=== PATIENT | male | born 1945 | race Caucasian/White ===

== ENCOUNTER 2017-03-09 21:57 | Observation (INO) | payer OTHER, MEDICARE ==
[~2017-03-09] VITALS: Ht 172.7 cm; Wt 66.7 kg
[~2017-03-09 21:57] MED LIST: ALBU6.7H INH; ASPI81TA82 PO; CLOP75 PO; IPRAAER IN; LORTA5 PO; SYMB80AE INH; ZOCO40TA PO
[2017-03-09 22:05] VITALS: BP 210/107; PULSE 70; RESP 24; TEMP 98.7; O2SAT 91
[2017-03-09 22:15] VITALS: BP 179/101; PULSE 66; RESP 24; O2SAT 98
[2017-03-09] MEDS ORDERED: methylPREDNISolone SOD SUCC 125 MG/2 ML VIAL IV PUSH ONE (22:15)
[2017-03-09] MEDS ORDERED: RESP: ALBUTEROL 2.5 MG/IPRATROPIUM 0.5 MG NEB (SCH) NEB ONE (22:15)
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
[2017-03-09 22:30] VITALS: BP 194/105; PULSE 64; RESP 22; O2SAT 99
[2017-03-09 22:35] LABS: CHLORIDE 97 MEQ/L (98-107); POTASSIUM 4.1 MEQ/L (3.5-5.1); SODIUM (NA) 137 MEQ/L (136-145)
[2017-03-09] MEDS ORDERED: ATOR10TA15 PO (22:35)
[2017-03-09] MEDS ORDERED: ASPI1TAB69 PO (22:35)
[2017-03-09 22:36] LABS: AUTOMATED NEUTROPHIL # 4.7 TH/MM3 (1.8-7.7); BASOPHIL # 0.1 TH/MM3 (0-0.2); BASOPHIL % 1.3 % (0.0-2.0); EOSINOPHIL # 0.6 TH/MM3 (0-0.4); EOSINOPHIL % 7.8 % (0.0-4.0); HEMATOCRIT 47.6 % (39.0-51.0); HEMO FLAGS DIFF FINAL; LYMPH % 20.9 % (9.0-44.0); LYMPHOCYTE # 1.6 TH/MM3 (1.0-4.8); MEAN CELL VOLUME 95.1 FL (80.0-100.0); MEAN CORPUSCULAR HEMOGLOBIN 31.3 PG (27.0-34.0); MEAN CORPUSCULAR HGB CONC 32.9 % (32.0-36.0); MONO % 9.4 % (0.0-8.0); NEUT % 60.6 % (16.0-70.0); PLATELET COUNT 195 TH/MM3 (150-450); RED CELL DISTRIBUTION WIDTH 14.9 % (11.6-17.2); WHITE BLOOD COUNT 7.7 TH/MM3 (4.0-11.0)
[2017-03-09] MEDS ORDERED: LISI2.5T3 PO (22:36)
[2017-03-09] MEDS ORDERED: IPRAAER INH (22:37)
[2017-03-09] MEDS ORDERED: SYMB80AE INH (22:38)
[2017-03-09] MEDS ORDERED: ALBU0.63 NEB (22:39)
[2017-03-09 22:40] LABS: ANION GAP 5 MEQ/L (5-15); BICARBONATE 34.7 MEQ/L (21.0-32.0); BLOOD UREA NITROGEN 10 MG/DL (7-18)
[2017-03-09 22:41] LABS: APTT (PATIENT) 26.9 SEC (24.3-30.1); INTERNATIONAL NORMALIZED RATIO 1.2 RATIO; PROTHROMBIN TIME - PATIENT 12.8 SEC (9.8-11.6)
[2017-03-09 22:43] LABS: ALT (GPT) 25 U/L (12-78); AST (GOT) 28 U/L (15-37); GLOMERULAR FILTRATION RATE 74 ML/MIN (>89)
[2017-03-09 22:45] LABS: TOTAL BILIRUBIN ADULT 0.6 MG/DL (0.2-1.0)
[2017-03-09 22:46] LABS: ALKALINE PHOSPHATASE 89 U/L (45-117)
--- NOTE | 2017-03-09 22:51 | RADHPO ---
EXAM DATE/TIME: 03/09/2017 22:23 [facility] COMPARISON: CHEST SINGLE AP, July 27, 2015, 11:15. INDICATIONS : Shortness of breath. MEDICAL HISTORY : Chronic obstructive pulmonary disease. Emphysema. Congestive heart failure. SURGICAL HISTORY : CABG. ENCOUNTER: Initial ACUITY: >1 year PAIN SCORE: 0/10 LOCATION: Bilateral chest FINDINGS: There is right apical pleural thickening which is a new finding since July 2015. No new consolidat ion the remainder of the lungs. Previous median sternotomy. No significant effusion. Scattered parenc hymal scarring in both lungs. CONCLUSION: 1. There is biapical pleural thickening to 1.9 cm which is a new finding since 2014. Cannot exclude a pical mass. Patient is scheduled for neck CT which should include visualization of the lung apices. Armond Elmore MD on March 09, 2017 at 22:46 Board Certified Radiologist. This report was verified electronically.
[2017-03-09 23:00] VITALS: BP 165/81; PULSE 66; RESP 22; O2SAT 99
[2017-03-09 23:03] LABS: BLOOD, URINE SMALL (NEG); GLUCOSE,URINE NEG (NEG); KETONE, URINE NEG (NEG); NITRITE,URINE NEG (NEG)
[2017-03-09 23:16] LABS: URINE COLOR YELLOW (YELLW/STRAW)
[2017-03-09 23:25] LABS: COMMENT (UR) CULT NOT INDICATED; CULTURE IF INDICATED CULT NOT INDICATED; RBC, URINE 0-3 /hpf (0-3); SQUAMOUS EPITHELIAL CELL URINE 0-5 /hpf (0-5)
[2017-03-09 23:30] VITALS: BP 172/103; PULSE 80; RESP 20; O2SAT 96
[2017-03-09] MEDS ORDERED: IOHEXOL 350 MG/ML 10 ML VIAL (for RAD DIAG) IV ONE (23:37)
[2017-03-10] VITALS (13 sets, daily range): BP systolic 154–174; BP diastolic 81–93; PULSE 70–94; RESP 18–20; TEMP 96.5–97.9; O2SAT 94–98
--- NOTE | 2017-03-10 00:02 | RADHPO ---
EXAM DATE/TIME: 03/09/2017 23:11 [facility] COMPARISON: CHEST SINGLE AP, July 27, 2015, 11:15. CHEST SINGLE AP, March 09, 2017, 22:23. INDICATIONS : Shortness of breath. Feeling of throat closing.. Abnormal chest x-ray exam demonstrating right a pical pleural thickening which is a new finding. IV CONTRAST: 100 cc Omnipaque 350 (iohexol) IV RADIATION DOSE: 13.99 CTDIvol (mGy) MEDICAL HISTORY : Chronic obstructive pulmonary disease. Cardiovascular disease SURGICAL HISTORY : CABG ENCOUNTER: Initial ACUITY: 2 days PAIN SCALE: 0/10 LOCATION: neck thyroid cartilage region. TECHNIQUE: Volumetric scanning of the neck was performed. Using automated exposure control and adjustment of th e mA and/or kV according to patient size, radiation dose was kept as low as reasonably achievable to obtain optimal diagnostic quality images. FINDINGS: NASOPHARYNX: The nasopharyngeal airway has a normal configuration. No mucosal thickening or mass is seen. OROPHARYNX: The intrinsic muscles of the tongue are symmetric. The tonsillar pillars are intact. The prevertebr al soft tissues are not thickened. LARYNX: The supraglottic, glottic, and infraglottic structures are intact. PARAPHARYNGEAL: The parapharyngeal space is intact. SALIVARY GLANDS: The parotid and submandibular glands are intact. LYMPH NODES: No enlarged or necrotic-appearing nodes. There are scattered reactive appearing lymph nodes. THYROID: Homogeneous enhancement without evidence of nodule. BONES: Patient is noted status post median sternotomy. The upper lung apices were included on the exam and demonstrate underlying emphysema. There is a symmetric right lateral apical pleural parenchymal change which is partially visualized. This corresp onds to finding on the chest x-ray. A metal stent catheter is noted in the left subclavian artery. CONCLUSION: 1. The airway is intact with no intrinsic mass or narrowing. 2. Small reactive appearing lymph nodes with no definite adenopathy. 3. Portions of the lung apices were included on the exam and demonstrate underlying emphysema as well as asymmetric right lateral apical pleural parenchymal change which is only partially visualized. Th is is nonspecific there was a new finding on chest x-ray exam. A dedicated chest CT with contrast is recommended. Tay Hay MD on March 09, 2017 at 23:53 Board Certified Radiologist. This report was verified electronically.
[2017-03-10] MEDS ORDERED: NALOXONE HCL 0.4 MG/ML AMP IV PRN (01:45)
[2017-03-10] MEDS ORDERED: SODIUM CHLORIDE 0.9% FLUSH 10 ML FLUSH IV FLUSH PRN (01:45)
[2017-03-10] MEDS ORDERED: RESP: ALBUTEROL 2.5 MG/IPRATROPIUM 0.5 MG NEB (PRN) NEB (01:45)
[2017-03-10] MEDS: RESP: ALBUTEROL 2.5 MG/IPRATROPIUM 0.5 MG NEB (SCH) NEB ×4 (03:12→21:00)
[2017-03-10] MEDS: PANTOPRAZOLE SODIUM 40 MG VIAL IV PUSH SCH (05:42)
[2017-03-10] MEDS: methylPREDNISolone SOD SUCC 40 MG/1 ML VIAL IV PUSH SCH ×3 (05:42→17:55)
[2017-03-10] MEDS ORDERED: PNEUMOCOCCAL POLYVALENT INJ 25 MCG/0.5 ML SYR IM ONE (09:00)
[2017-03-10] MEDS: SODIUM CHLORIDE 0.9% FLUSH 10 ML FLUSH IV FLUSH SCH ×2 (09:11→20:41)
--- NOTE | 2017-03-10 10:27 | EKG ---
Date Performed: 03/09/2017 Time Performed: 22:05:52 PTAGE: 71 years EKG: Sinus rhythm with 1st degree A-V block Left anterior fascicular block rSr'(V1) - probable normal variant Anterose ptal T wave changes are nonspecific Abnormal ECG PREVIOUS TRACING : 07/29/2015 11.10 DOCTOR: Kael Zhao Interpretating Date/Time 03/10/2017 10:22:18
[2017-03-10] MEDS ORDERED: PILL SPLITTER OTHER PRN (12:00)
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
[2017-03-10] MEDS: MULTIVITAMIN TAB PO SCH (12:21)
[2017-03-10 18:55] LABS: BLOOD GAS BASE EXCESS 4.8 mmol/L (-2-2); BLOOD GAS CARBOXYHEMOGLOBIN 1.6 % (0-4); BLOOD GAS HCO3 29 mmol/L (22-26); BLOOD GAS O2 HGB SATURATION 94 % (90-100); BLOOD GAS OXYGEN CONTENT 18.9 Vol % (12.0-20.0); BLOOD GAS PCO2 48 mmHg (38-42); BLOOD GAS PO2 89 mmHg (61-120); BLOOD GAS TOTAL HGB 14.2 G/DL (12.0-16.0); CRITICAL VALUE NO; DRAW SITE RT RADIAL; FIO2 32 %; LITER FLOW 3 L/M; NUMBER OF ARTERIAL PUNCTURES 1; OXYGEN DEVICE NASAL CANNULA; STAT YES; TEMP CORR TO 98.6; ULNAR PULSE PRESENT
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
[2017-03-10] MEDS: BUDESONIDE-FORMOTEROL 80/4.5 MCG INHALER INH SCH (20:41)
[2017-03-10] MEDS ORDERED: ATORVASTATIN 10 MG TAB PO SCH (21:00)
[2017-03-10] MEDS ORDERED: RESP: ALBUTEROL 0.63 MG/3 ML NEB (SCH) NEB (21:00)
[2017-03-11] VITALS: BP 117/69; PULSE 84; RESP 18; TEMP 97.8; O2SAT 97
[2017-03-11] MEDS: methylPREDNISolone SOD SUCC 40 MG/1 ML VIAL IV PUSH SCH ×3 (00:33→12:47)
[2017-03-11] MEDS: RESP: ALBUTEROL 2.5 MG/IPRATROPIUM 0.5 MG NEB (SCH) NEB ×2 (03:51→10:06)
[2017-03-11 04:00] VITALS: BP 99/81; PULSE 80; RESP 22; TEMP 97.6; O2SAT 95
[2017-03-11] MEDS: PANTOPRAZOLE SODIUM 40 MG VIAL IV PUSH SCH (06:43)
--- NOTE | 2017-03-11 07:34 | HHI.PR ---
Subjective Remarks ) Sleeping in bed since he was not able to sleep overnight. Says he has bouts of cough persistent and with periods of apnea. No fever or chills. Says he is feeling his biceps closing up. Since his coughing but nothing comes out. He is not wheezing at this time. No nausea or vomiting. No diarrhea or constipation. Objective Vitals Vital Signs Date Time Temp Pulse Resp B/P Pulse Ox O2 Delivery O2 Flow Rate FiO2 03/11/17 04:00 97.6 80 22 99/81 95 03/11/17 00:00 97.8 84 18 117/69 97 03/10/17 21:00 95 Nasal Cannula 3.00 03/10/17 20:43 91 03/10/17 20:00 96.5 94 20 159/91 94 03/10/17 20:00 94 Nasal Cannula 3.00 03/10/17 16:00 97.8 81 18 154/81 96 03/10/17 12:00 97.8 81 18 154/81 96 03/10/17 09:18 94 Nasal Cannula 3.00 03/10/17 08:00 97.7 78 19 174/93 95 I/O 03/10/17 03/10/17 03/10/17 03/11/17 03/11/17 03/11/17 07:00 15:00 23:00 07:00 15:00 23:00 Intake Total 250 ml 420 ml 720 ml Output Total 300 ml 800 ml 500 ml 700 ml Balance -50 ml -800 ml -80 ml 20 ml Intake Oral 250 ml 420 ml 720 ml IV Total 0 ml Output Urine Total 300 ml 800 ml 500 ml 700 ml # Voids 1 2 # Bowel Movements 1 0 Result Diagram: 03/09/17 2210 03/09/172209 Imaging Last Impressions Neck CT 03/09/172212 Signed Impressions: Service Date/Time: Thursday, March 09, 2017 23:11 - CONCLUSION: 1. The airway is intact with no intrinsic mass or narrowing. 2. Small reactive appearing lymph nodes with no definite adenopathy. 3. Portions of the lung apices were included on the exam and demonstrate underlying emphysema as well as asymmetric right lateral apical pleural parenchymal change which is only partially visualized. This is nonspecific there was a new finding on chest x-ray exam. A dedicated chest CT with contrast is recommended. Tay Hay MD Chest X-Ray 03/09/17 2213 Signed Impressions: Service Date/Time: Thursday, March 09, 2017 22:23 - CONCLUSION: 1. There is biapical pleural thickening to 1.9 cm which is a new finding since 2014. Cannot exclude apical mass. Patient is scheduled for neck CT which should include visualization of the lung apices. Armond Elmore MD Objective Remarks GENERAL: 71 yo male, thin, coughing on/off. SKIN: No rashes, ecchymoses or lesions. Cool and dry. HEAD: Atraumatic. Normocephalic. No temporal or scalp tenderness. EYES: Pupils equal round and reactive. Extraocular motions intact. No scleral icterus. No injection or drainage. ENT: Nose without bleeding, purulent drainage or septal hematoma. Throat without erythema, tonsillar hypertrophy or exudate. Uvula midline. Airway patent. NECK: Trachea midline. No JVD or lymphadenopathy. Supple, nontender, no meningeal signs. CARDIOVASCULAR: Regular rate and rhythm without murmurs, gallops, or rubs. RESPIRATORY: Diminished breath sounds bilaterally. Otherwise clear to auscultation. No wheezing or rhonchi. GASTROINTESTINAL: Abdomen soft, non-tender, nondistended. No hepato-splenomegaly , or palpable masses. No guarding. MUSCULOSKELETAL: Extremities without clubbing, cyanosis, or edema. No joint tenderness, effusion, or edema noted. No calf tenderness. Negative Homans sign bilaterally. NEUROLOGICAL: Awake and alert. Cranial nerves II through XII intact. Motor and sensory grossly within normal limits. Five out of 5 muscle strength in all muscle groups. Normal speech. A/P Problem List: (1) COPD exacerbation ICD Code: J44.1 Status: Acute (2) Chronic respiratory failure ICD Code: J96.10 Status: Chronic (3) Coronary artery disease ICD Code: I25.10 Status: Chronic (4) Hyperlipidemia ICD Code: E78.5 Status: Chronic (5) Hypertension ICD Code: I10 Status: Acute Assessment and Plan (1) COPD exacerbation ICD Code: J44.1 Status: Acute Plan: - Patient with known history of emphysema. He is having severe spasmodic cough. Imaging revealed a probable apical mass. CT of the chest with contrast was recommended. However he already received the allowed contrast dose for the day. This will be done tomorrow. Supportive care with breathing treatments, oxygen Continue IV Solu-Medrol Consult pulmonology for assistance - Seen by Dr Rigo siegel . recommends CT for further evaluation of the LN (2) Chronic respiratory failure ICD Code: J96.10 Status: Chronic (3) Coronary artery disease ICD Code: I25.10 Status: Chronic Plan: Continue aspirin and statin. (4) Hyperlipidemia ICD Code: E78.5 Status: Chronic Plan: Continue statin (5) Hypertension ICD Code: I10 Status: Acute Plan: Stable. Continue lisinopril DVT ppx SCD/TEDs Melany Pitt MD March 11, 2017 07:34
[2017-03-11 07:39] LABS: AUTOMATED NEUTROPHIL # 11.7 TH/MM3 (1.8-7.7); EOSINOPHIL % 0.1 % (0.0-4.0); HEMATOCRIT 44.5 % (39.0-51.0); LYMPH % 3.3 % (9.0-44.0); LYMPHOCYTE # 0.4 TH/MM3 (1.0-4.8); MEAN CELL VOLUME 95.4 FL (80.0-100.0); MEAN CORPUSCULAR HEMOGLOBIN 30.5 PG (27.0-34.0); MONO % 2.2 % (0.0-8.0); NEUT % 94.4 % (16.0-70.0); PLATELET COUNT 184 TH/MM3 (150-450); RED BLOOD COUNT 4.66 MIL/MM3 (4.50-5.90); RED CELL DISTRIBUTION WIDTH 15.8 % (11.6-17.2); WHITE BLOOD COUNT 12.4 TH/MM3 (4.0-11.0)
[2017-03-11 07:41] LABS: HEMO FLAGS DIFF FINAL
[2017-03-11 08:00] VITALS: BP 138/85; PULSE 80; RESP 18; TEMP 97.4; O2SAT 95
[2017-03-11] MEDS ORDERED: IOHEXOL 350 MG/ML 10 ML VIAL (for RAD DIAG) IV ONE (08:57)
[2017-03-11] MEDS ORDERED: LISINOPRIL 5 MG TAB PO SCH (09:00)
[2017-03-11] MEDS ORDERED: ASPIRIN EC 81 MG TABEC PO SCH (09:00)
[2017-03-11] MEDS: SODIUM CHLORIDE 0.9% FLUSH 10 ML FLUSH IV FLUSH SCH (09:00)
--- NOTE | 2017-03-11 09:17 | RADHPO ---
EXAM DATE/TIME: 03/11/2017 08:41 [facility] COMPARISON: CT SOFT TISSUE NECK W CONTRAST, March 09, 2017, 23:11. CTA THORACIC ABDOMINAL AORTA W 3D RECON, Octobe r 2014, 11:53. CHEST SINGLE AP, March 09, 2017, 22:23. INDICATIONS : Abnormal chest x-ray. Evaluate for mass. IV CONTRAST: 60 cc Omnipaque 350 (iohexol) IV RADIATION DOSE: 6.57 CTDIvol (mGy) MEDICAL HISTORY : Chronic obstructive pulmonary disease. Congestive heart failure. Myocardial infarction.Hypertension. SURGICAL HISTORY : CABG ENCOUNTER: Initial ACUITY: 4 - 6 days PAIN SCALE: 0/10 LOCATION: chest TECHNIQUE: Volumetric scanning of the chest was performed. Using automated exposure control and adjustment of t he mA and/or kV according to patient size, radiation dose was kept as low as reasonably achievable to obtain optimal diagnostic quality images. FINDINGS: LUNGS: CT confirms the presence of bilateral changes most prominent in the apices. There is marked pleural p arenchymal thickening laterally in the right apex which was not present in July of 2015. The previ ous area of consolidation laterally in the left perihilar distribution of the left lower lobe shows i mprovement with some residual pleural-parenchymal scarring. No additional infiltrates or mass lesions . PLEURA: Pleural thickening in the region of the pleural-parenchymal consolidation laterally in the right uppe r lung. MEDIASTINUM: Cluster of prominent azygos lymph nodes. These appear isolated. Atherosclerotic calcification of the coronary arteries. Nonostial stent in the left subclavian artery remains patent. AXILLAE: Within normal limits. No lymphadenopathy. SKELETAL: Degenerative changes in the dorsal spine. 2.5 cm sebaceous cyst in the subcutaneous tissues of the ri ght chest. MISCELLANEOUS: The visualized upper abdominal organs demonstrate no acute abnormality. CONCLUSION: 1. Focal area of pleural-parenchymal consolidation laterally and posteriorly in the right lung apex. This is new from the July 2015 exam. A prominent cluster of paratracheal/azygos lymph nodes is als o present. Both infectious and neoplastic processes should be considered. PET imaging is suggested fo r further evaluation to locate the most metabolically active portions of the consolidative process. 2. Diffuse, bilateral emphysematous changes, most prominent in the apices. Previous area of consolida tion in the perihilar distribution of the left lower lobe shows marked improvement with residual pleu ral-parenchymal scarring. 3. Left subclavian stent is patent. 4. Coronary artery calcification. 5. Benign appearing 2.5 cm probable sebaceous cyst in subcutaneous tissues of the right chest. Jeronimo Haywood MD on March 11, 2017 at 9:03 Board Certified Radiologist. This report was verified electronically.
[2017-03-11] MEDS: MULTIVITAMIN TAB PO SCH (09:26)
[2017-03-11] MEDS: BUDESONIDE-FORMOTEROL 80/4.5 MCG INHALER INH SCH (09:29)
[2017-03-11 10:07] VITALS: O2SAT 96
[2017-03-11 12:00] VITALS: BP 157/87; PULSE 88; RESP 18; TEMP 97.8; O2SAT 95
--- NOTE | 2017-03-15 11:56 | RSPPFT ---
DATE OF PROCEDURE: 03/11/17 COMMENTS: Spirometry shows FVC of 2.8 at 68% of predicted, FEV1 of 1.3 at 42%, FEV1/FVC ratio is decreased. Flow is decreased at FEF 25, FEF 75 and FEF 25-75. There is a good response after bronchodilator treatment. Flow volume loop indicates an obstructive pattern. IMPRESSION: 1. Moderately severe obstructive lung disease. 2. Good response after bronchodilator treatment.
== END 2017-03-11 13:30 | disposition left against medical advice (07) ==
LOC: PHED 21:57 → PHEDA 03-10 01:08 → PH3A 03-10 02:30
PROVIDERS: ADMIT Hospitalist; ATTEND Hospitalist
DX: J44.1 Chronic obstructive pulmonary disease with (acute) exacerbation (principal); I48.91 Unspecified atrial fibrillation; F41.9 Anxiety disorder, unspecified; F32.9 Major depressive disorder, single episode, unspecified; J96.10 Chronic respiratory failure, unspecified whether with hypoxia or hypercapnia; J98.4 Other disorders of lung; E78.00 Pure hypercholesterolemia, unspecified; I11.0 Hypertensive heart disease with heart failure; I50.9 Heart failure, unspecified; I25.10 Atherosclerotic heart disease of native coronary artery without angina pectoris; H91.90 Unspecified hearing loss, unspecified ear; K21.9 Gastro-esophageal reflux disease without esophagitis; I25.2 Old myocardial infarction; M13.861 Other specified arthritis, right knee; F17.210 Nicotine dependence, cigarettes, uncomplicated; E78.5 Hyperlipidemia, unspecified; Z99.81 Dependence on supplemental oxygen; Z79.82 Long term (current) use of aspirin; Z95.1 Presence of aortocoronary bypass graft; Z88.2 Allergy status to sulfonamides; Z23 Encounter for immunization
CPT/HCPCS: 36600; 70491; 71010; 71260; 80048; 80053; 81001; 82805; 83880; 84484; 85025; 85610; 85730; 90732; 93005; 94060; 94640; 94664; 96374; 99285; C9113; G0009; G0378; J2920; J2930; Q9967; 90471

== ENCOUNTER 2017-09-01 10:59 | Inpatient (IN) | payer OTHER, MEDICARE ==
[2017-09-01] VITALS (12 sets, daily range): BP systolic 124–182; BP diastolic 66–96; PULSE 77–98; RESP 18–36; TEMP 97.8; O2SAT 89–100
[~2017-09-01] VITALS: Ht 172.7 cm; Wt 82.2 kg
[~2017-09-01 10:59] MED LIST changes: +ALBU0.63 NEB; -ALBU6.7H INH; +ASPI1TAB69 PO; -ASPI81TA82 PO; +ATOR10TA15 PO; -CLOP75 PO; -IPRAAER IN; +IPRAAER INH; +LISI2.5T3 PO; -LORTA5 PO; -ZOCO40TA PO
--- NOTE | 2017-09-01 11:08 | PD ---
HPI Chief Complaint: Respiratory Symptoms Time Seen by Provider: 11:02 Travel History International Travel<30 days: No Contact w/Intl Traveler<30days: No Traveled to known affect area: No History of Present Illness HPI This 72-year-old male is complaining of shortness of breath. He has a history of COPD. He is on home oxygen but he does continue to smoke. He is not aware of fever or chills. He has had increasing shortness of breath for the last couple of days. He has noted increased swelling of his legs and scrotum. He has had some mild precordial chest pain. He does have a history of coronary artery disease and also COPD he has had bypass surgery 3 and he had stents placed. He is on home oxygen at 4 L/m that he also smokes. His oxygen saturation on arrival here was 81% PFSH Past Medical History Hx Anticoagulant Therapy: Yes (PLAVIX) Arthritis: Yes (Right Knee) Asthma: Yes Atrial Fibrillation: Yes Autoimmune Disease: No Blood Disorders: No Anxiety: Yes Depression: Yes Heart Rhythm Problems: Yes Cancer: No Cardiac Catheterization: Yes Cardiovascular Problems: Yes High Cholesterol: Yes Chemotherapy: No Chest Pain: Yes Congestive Heart Failure: Yes COPD: Yes Cerebrovascular Accident: No Coronary Artery Disease: Yes Diabetes: No Diminished Hearing: Yes (Hearing aids) Endocrine: No Gastrointestinal Disorders: Yes (ABDOM HERNIA) GERD: Yes Glaucoma: No Genitourinary: No Headaches: No Hepatitis: No Hiatal Hernia: Yes Hypertension: Yes Immune Disorder: No Kidney Stones: No Musculoskeletal: Yes (LEG AND HIP DUE TO PED VS CAR) Neurologic: No Psychiatric: Yes Reproductive: No Respiratory: Yes Immunizations Current: Yes Migraines: No Myocardial Infarction: Yes Pneumonia: Yes Radiation Therapy: No Renal Failure: No Seizures: No Sickle Cell Disease: No Sleep Apnea: No Thyroid Disease: No Ulcer: No Past Surgical History Abdominal Surgery: No AICD: No Appendectomy: No Arteriovenous Shunt: No Cardiac Surgery: Yes Cholecystectomy: No Coronary Artery Bypass Graft: Yes (X 3; cardiac cath) Coronary Stent: Yes (X2 ) Ear Surgery: No Endocrine Surgery: No Eye Surgery: No Genitourinary Surgery: No Gynecologic Surgery: No Insulin Pump: No Joint Replacement: No Oral Surgery: Yes (Dental Extractions) Pacemaker: No Thoracic Surgery: Yes (Biopsies of the lungs) Other Surgery: Yes (Bone grafts from bilat hips ) Social History Alcohol Use: Yes (Occasionally) Tobacco Use: Yes (1 CIG A DAY) Substance Use: No Allergies-Medications (Allergen,Severity, Reaction): Coded Allergies: Sulfa (Sulfonamide Antibiotics) (Unverified Allergy, Severe, HIVES AND RASH, 09/01/17) Reported Meds & Prescriptions Reported Meds & Active Scripts Active Reported Albuterol Neb (Albuterol Sulfate) 0.63 Mg/3 Ml Neb 0.63 Mg NEB HS Symbicort Inh (Budesonide/Formoterol Fumarate) 80-4.5 Mcg/Act Aero 2 Puff INH Q12HR Combivent Respimat Inh (Ipratropium-Albuterol Inh) 20-100 Prison/Act Aero 1 Puff INH QID PRN Lisinopril 2.5 Mg Tab 2.5 Mg PO DAILY Atorvastatin (Atorvastatin Calcium) 10 Mg Tab 10 Mg PO HS Aspirin 81 Mg Tabdr 81 Mg PO DAILY Review of Systems General / Constitutional: No: Fever, Chills Eyes: No: Diploplia, Blurred Vision HENT: No: Headaches, Vertigo Cardiovascular: Positive: Chest Pain or Discomfort Respiratory: Positive: Cough, Shortness of Breath Gastrointestinal: No: Vomiting, Diarrhea Genitourinary: No: Urgency, Frequency Musculoskeletal: No: Myalgias, Arthralgias Hematologic/Lymphatic: No: Easy Bruising Physical Exam Narrative GENERAL: Chronically ill-appearing male in marked respiratory distress SKIN: Focused skin assessment warm/dry. HEAD: Atraumatic. Normocephalic. EYES: Pupils equal and round. No scleral icterus. No injection or drainage. ENT: No nasal bleeding or discharge. Mucous membranes pink and moist. NECK: Trachea midline. No JVD. CARDIOVASCULAR: Regular rate and rhythm. No murmur appreciated. RESPIRATORY: accessory muscle use. Diminished breath sounds bilaterally. There are bibasilar rales GASTROINTESTINAL: Abdomen soft, non-tender, nondistended. Hepatic and splenic margins not palpable. MUSCULOSKELETAL: No obvious deformities. No clubbing. No cyanosis. Bilateral pedal edema up to and including the scrotum NEUROLOGICAL: Awake and alert. No obvious cranial nerve deficits. Motor grossly within normal limits. Normal speech. PSYCHIATRIC: Appropriate mood and affect; insight and judgment normal. Data Data Last Documented VS Vital Signs Date Time Temp Pulse Resp B/P (MAP) Pulse Ox O2 Delivery O2 Flow Rate FiO2 09/01/17 11:47 97 Nasal Cannula 3.00 09/01/17 11:28 09/01/17 11:14 97.8 77 22 Orders Orders Complete Blood Count With Diff (09/01/17 11:02) Comprehensive Metabolic Panel (09/01/17 11:02) B-Type Natriuretic Peptide (09/01/17 11:02) Act Partial Throm Time (Ptt) (09/01/17 11:02) Prothrombin Time / Inr (Pt) (09/01/17 11:02) Magnesium (Mg) (09/01/17 11:02) Troponin I (09/01/17 11:02) Urinalysis - C+S If Indicated (09/01/17 11:02) Influenzae A/B Antigen (09/01/17 11:02) Blood Culture (09/01/17 11:02) Iv Access Insert/Monitor (09/01/17 11:02) Electrocardiogram (09/01/17 11:02) Ecg Monitoring (09/01/17 11:02) Oximetry (09/01/17 11:02) Oxygen Administration (09/01/17 11:02) Chest, Single Ap (09/01/17 11:02) Sodium Chloride 0.9% Flush (Ns Flush) (09/01/17 11:15) Methylprednisolone So Succ Inj (Solumedr (09/01/17 11:15) Albuterol-Ipratropium Neb (Duoneb Neb) (09/01/17 11:15) Furosemide Inj (Lasix Inj) (09/01/17 11:45) Labs Laboratory Tests Test 09/01/17 11:38 White Blood Count 6.7 TH/MM3 Red Blood Count 4.38 MIL/MM3 Hemoglobin 13.9 GM/DL Hematocrit 42.4 % Mean Corpuscular Volume 97.0 FL Mean Corpuscular Hemoglobin 31.8 PG Mean Corpuscular Hemoglobin Concent 32.8 % Red Cell Distribution Width 15.1 % Platelet Count 199 TH/MM3 Mean Platelet Volume 9.3 FL Neutrophils (%) (Auto) 76.3 % Lymphocytes (%) (Auto) 10.8 % Monocytes (%) (Auto) 8.3 % Eosinophils (%) (Auto) 3.0 % Basophils (%) (Auto) 1.6 % Neutrophils # (Auto) 5.1 TH/MM3 Lymphocytes # (Auto) 0.7 TH/MM3 Monocytes # (Auto) 0.6 TH/MM3 Eosinophils # (Auto) 0.2 TH/MM3 Basophils # (Auto) 0.1 TH/MM3 CBC Comment DIFF FINAL Differential Comment Prothrombin Time 12.3 SEC Prothromb Time International Ratio 1.1 RATIO Activated Partial Thromboplast Time 26.8 SEC Blood Urea Nitrogen 12 MG/DL Creatinine 0.66 MG/DL Random Glucose 95 MG/DL Total Protein 5.9 GM/DL Albumin 1.5 GM/DL Calcium Level 8.3 MG/DL Magnesium Level 2.4 MG/DL Alkaline Phosphatase 111 U/L Aspartate Amino Transf (AST/SGOT) 44 U/L Alanine Aminotransferase (ALT/SGPT) 28 U/L Total Bilirubin 0.4 MG/DL Sodium Level 140 MEQ/L Potassium Level 5.2 MEQ/L Chloride Level 101 MEQ/L Carbon Dioxide Level 37.3 MEQ/L Anion Gap 2 MEQ/L Estimat Glomerular Filtration Rate 119 ML/MIN Troponin I 0.05 NG/ML B-Type Natriuretic Peptide 912 PG/ML MDM Medical Decision Making Medical Screen Exam Complete: Yes Emergency Medical Condition: Yes Medical Record Reviewed: Yes Differential Diagnosis Differential includes COPD exacerbation, CHF, pneumonia Narrative Course X-ray shows right pleural effusion and evidence of COPD. BNP is 912. Diagnosis Primary Impression: CHF (congestive heart failure) Qualified Codes: I50.9 - Heart failure, unspecified Additional Impressions: COPD exacerbation Hypoxia Admitting Information Admitting Physician Requests: Admit Harmeet Yan MD Sep 01, 2017 11:08
[2017-09-01] MEDS ORDERED: SODIUM CHLORIDE 0.9% FLUSH 10 ML FLUSH IVF PRN (11:15)
[2017-09-01] MEDS ORDERED: methylPREDNISolone SOD SUCC 125 MG/2 ML VIAL IV PUSH ONE (11:15)
[2017-09-01] MEDS: RESP: ALBUTEROL 2.5 MG/IPRATROPIUM 0.5 MG NEB (SCH) INH ×2 (11:31→11:32)
[2017-09-01 11:45] LABS: AUTOMATED NEUTROPHIL # 5.1 TH/MM3 (1.8-7.7); BASOPHIL # 0.1 TH/MM3 (0-0.2); BASOPHIL % 1.6 % (0.0-2.0); EOSINOPHIL # 0.2 TH/MM3 (0-0.4); HEMATOCRIT 42.4 % (39.0-51.0); LYMPH % 10.8 % (9.0-44.0); LYMPHOCYTE # 0.7 TH/MM3 (1.0-4.8); MEAN CORPUSCULAR HEMOGLOBIN 31.8 PG (27.0-34.0); MEAN CORPUSCULAR HGB CONC 32.8 % (32.0-36.0); MONO % 8.3 % (0.0-8.0); NEUT % 76.3 % (16.0-70.0); PLATELET COUNT 199 TH/MM3 (150-450); RED BLOOD COUNT 4.38 MIL/MM3 (4.50-5.90); RED CELL DISTRIBUTION WIDTH 15.1 % (11.6-17.2); WHITE BLOOD COUNT 6.7 TH/MM3 (4.0-11.0)
[2017-09-01] MEDS ORDERED: FUROSEMIDE 40 MG/4 ML VIAL IV PUSH ONE (11:45)
--- NOTE | 2017-09-01 11:45 | RADRPT ---
EXAM DATE/TIME: 09/01/2017 11:20 [facility] COMPARISON: CHEST SINGLE AP, July 27, 2015, 11:15. CT THORAX W CONTRAST, March 11, 2017, 8:41. CHEST SINGLE AP , March 09, 2017, 22:23. INDICATIONS : Short of breath MEDICAL HISTORY : Chronic obstructive pulmonary disease. Congestive heart failure. Myocardial infarction. Hypertens ion SURGICAL HISTORY : CABG. ENCOUNTER: Initial ACUITY: 2 days PAIN SCORE: 0/10 LOCATION: Bilateral chest FINDINGS: Portable AP views of the chest demonstrate a normal-sized cardiac silhouette in this patient post med christopher sternotomy. There is stable right apical pleural-parenchymal opacity with signs of right upper lo be volume loss. There is a small right basilar pleural-parenchymal opacity. No pneumothorax is visual ized. There are chronic interstitial changes related to emphysema. Bones and soft tissues demonstrate no acute finding. CONCLUSION: 1. Small right pleural effusion with associated compressive atelectasis and/or consolidation. 2. Stable background emphysema with bulla at the lung apices and nonspecific pleural-parenchymal opac ity at the right lung apex. Papo Rouse MD on September 01, 2017 at 11:39 Board Certified Radiologist. This report was verified electronically.
[2017-09-01 11:47] LABS: HEMO FLAGS DIFF FINAL
[2017-09-01 11:54] LABS: CHLORIDE 101 MEQ/L (98-107); SODIUM (NA) 140 MEQ/L (136-145)
[2017-09-01 11:58] LABS: ANION GAP 2 MEQ/L (5-15); BICARBONATE 37.3 MEQ/L (21.0-32.0); BLOOD UREA NITROGEN 12 MG/DL (7-18); MAGNESIUM 2.4 MG/DL (1.5-2.5)
[2017-09-01 11:59] LABS: APTT (PATIENT) 26.8 SEC (24.3-30.1); INTERNATIONAL NORMALIZED RATIO 1.1 RATIO; PROTHROMBIN TIME - PATIENT 12.3 SEC (9.8-11.6)
[2017-09-01 12:01] LABS: ALT (GPT) 28 U/L (12-78); AST (GOT) 44 U/L (15-37); GLOMERULAR FILTRATION RATE 119 ML/MIN (>89)
[2017-09-01 12:02] LABS: POTASSIUM 5.2 MEQ/L (3.5-5.1)
[2017-09-01 12:03] LABS: TOTAL BILIRUBIN ADULT 0.4 MG/DL (0.2-1.0)
[2017-09-01 12:04] LABS: ALKALINE PHOSPHATASE 111 U/L (45-117)
--- NOTE | 2017-09-01 12:47 | EKG ---
Date Performed: 09/01/2017 Time Performed: 11:11:14 PTAGE: 72 years EKG: Sinus rhythm WITH FIRST DEGREE AV BLOCK RIGHT BUNDLE BRANCH BLOCK LEFT ANTERIOR FASCICULAR BLOCK ABNORMAL ECG PREVIOUS TRACING : 03/09/2017 22.05 DOCTOR: Kael Zhao Interpretating Date/Time 09/01/2017 12:45:21
[2017-09-01 12:58] LABS: BLOOD, URINE MOD (NEG); GLUCOSE,URINE NEG (NEG); KETONE, URINE NEG (NEG); NITRITE,URINE NEG (NEG)
[2017-09-01 13:03] LABS: METHOD OF COLLECTION CLEAN CATCH; URINE COLOR YELLOW (YELLW/STRAW); WBC, URINE 0-2 /hpf (0-5)
[2017-09-01 13:04] LABS: COMMENT (UR) CULT NOT INDICATED; CULTURE IF INDICATED CULT NOT INDICATED; SQUAMOUS EPITHELIAL CELL URINE 0-5 /hpf (0-5)
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
[2017-09-01] MEDS ORDERED: SODIUM CHLORIDE 0.9% FLUSH 10 ML FLUSH IV FLUSH PRN (16:00)
[2017-09-01] MEDS: FUROSEMIDE 40 MG/4 ML VIAL IVP SCH (17:16)
[2017-09-01] MEDS: HEPARIN SODIUM - SQ 10,000 UNITS/ML VIAL SQ SCH (17:17)
[2017-09-01] MEDS: RESP: ALBUTEROL 2.5 MG/IPRATROPIUM 0.5 MG NEB (PRN) NEB ×2 (17:47→23:39)
[2017-09-01] MEDS ORDERED: methylPREDNISolone SOD SUCC 40 MG/1 ML VIAL IV PUSH SCH ×2 (18:00→18:30)
--- NOTE | 2017-09-01 19:02 | EKG ---
Date Performed: 09/01/2017 Time Performed: 17:26:51 PTAGE: 72 years EKG: Sinus rhythm WITH FIRST DEGREE AV BLOCK MARKED LEFT AXIS DEVIATION RIGHT BUNDLE BRANCH BLOCK Left anterior fascic ular block ABNORMAL ECG PREVIOUS TRACING : 09/01/2017 11.11 DOCTOR: Karl Diaz Interpretating Date/Time 09/01/2017 19:02:21
[2017-09-01] MEDS: RESP: ALBUTEROL 2.5 MG/IPRATROPIUM 0.5 MG NEB (SCH) NEB (19:44)
[2017-09-01] MEDS: ATORVASTATIN 10 MG TAB PO SCH (20:19)
[2017-09-01] MEDS: METOPROLOL TARTRATE 25 MG TAB PO SCH (20:19)
[2017-09-01] MEDS: SODIUM CHLORIDE 0.9% FLUSH 10 ML FLUSH IV FLUSH SCH (20:19)
[2017-09-01] MEDS: methylPREDNISolone SOD SUCC 125 MG/2 ML VIAL IV PUSH SCH (21:39)
[2017-09-01] MEDS: BUDESONIDE-FORMOTEROL 80/4.5 MCG INHALER INH SCH (21:39)
[2017-09-01] MEDS: guaiFENesin SOLUTION 200 MG/10 ML CUP PO PRN (23:12)
[2017-09-01 23:24] LABS: BLOOD GAS BASE EXCESS 15.4 mmol/L (-2-2); BLOOD GAS CARBOXYHEMOGLOBIN 2.2 % (0-4); BLOOD GAS HCO3 41 mmol/L (22-26); BLOOD GAS METHEMOGLOBIN 0.9 % (0-2); BLOOD GAS O2 HGB SATURATION 89 % (90-100); BLOOD GAS OXYGEN CONTENT 16.2 Vol % (12.0-20.0); BLOOD GAS PCO2 65 mmHg (38-42); BLOOD GAS PO2 62 mmHg (61-120); BLOOD GAS TOTAL HGB 12.9 G/DL (12.0-16.0); CRITICAL VALUE YES; DRAW SITE RT BRACHIAL; FIO2 50 %; NUMBER OF ARTERIAL PUNCTURES 2; OXYGEN DEVICE Venti Mask; STAT YES; ULNAR PULSE Y
[2017-09-02] VITALS (11 sets, daily range): BP systolic 131–158; BP diastolic 68–88; PULSE 76–94; RESP 23–33; TEMP 97.8–98.7; O2SAT 88–98
[2017-09-02 04:47] LABS: AUTOMATED NEUTROPHIL # 3.7 TH/MM3 (1.8-7.7); BASOPHIL % 0.5 % (0.0-2.0); HEMATOCRIT 38.2 % (39.0-51.0); HEMO FLAGS DIFF FINAL; LYMPH % 7.3 % (9.0-44.0); LYMPHOCYTE # 0.3 TH/MM3 (1.0-4.8); MEAN CELL VOLUME 95.5 FL (80.0-100.0); MEAN CORPUSCULAR HEMOGLOBIN 31.5 PG (27.0-34.0); MONO % 0.6 % (0.0-8.0); NEUT % 91.6 % (16.0-70.0); PLATELET COUNT 176 TH/MM3 (150-450); RED BLOOD COUNT 3.99 MIL/MM3 (4.50-5.90); RED CELL DISTRIBUTION WIDTH 13.9 % (11.6-17.2)
[2017-09-02 05:04] LABS: BICARBONATE 41.9 MEQ/L (21.0-32.0); MAGNESIUM 2.3 MG/DL (1.5-2.5); POTASSIUM 4.2 MEQ/L (3.5-5.1)
[2017-09-02] MEDS: methylPREDNISolone SOD SUCC 125 MG/2 ML VIAL IV PUSH SCH ×3 (06:14→22:05)
[2017-09-02] MEDS: HEPARIN SODIUM - SQ 10,000 UNITS/ML VIAL SQ SCH ×2 (06:14→17:39)
--- NOTE | 2017-09-02 07:02 | EKG ---
Date Performed: 09/01/2017 Time Performed: 22:38:51 PTAGE: 72 years EKG: Sinus rhythm WITH FIRST DEGREE AV BLOCK MARKED LEFT AXIS DEVIATION RIGHT BUNDLE BRANCH BLOCK ABNORMAL ECG No sign ificant change from prior electrocardiogram. PREVIOUS TRACING : 09/01/2017 17.26 DOCTOR: Karl Diaz Interpretating Date/Time 09/02/2017 07:01:00
[2017-09-02] MEDS: RESP: ALBUTEROL 2.5 MG/IPRATROPIUM 0.5 MG NEB (SCH) NEB ×3 (07:55→19:26)
[2017-09-02] MEDS: LISINOPRIL 5 MG TAB PO SCH (08:49)
[2017-09-02] MEDS: ASPIRIN 81 MG CHEW TAB CHEW SCH (08:49)
[2017-09-02] MEDS: METOPROLOL TARTRATE 25 MG TAB PO SCH ×2 (08:49→20:07)
[2017-09-02] MEDS: SODIUM CHLORIDE 0.9% FLUSH 10 ML FLUSH IV FLUSH SCH ×2 (08:50→20:07)
[2017-09-02] MEDS: BUDESONIDE-FORMOTEROL 80/4.5 MCG INHALER INH SCH ×2 (08:50→20:07)
[2017-09-02] MEDS: FUROSEMIDE 40 MG/4 ML VIAL IVP SCH ×2 (08:50→17:39)
[2017-09-02] MEDS ORDERED: INFLUENZA VIRUS VACCINE (QUADRIVALENT) 0.5 ML SYR IM ONE (10:00)
--- NOTE | 2017-09-02 13:28 | HHI.PR ---
Subjective Remarks Nursing denies any deterioration since last night. Has remained on 3 L. Patient himself says he feels like his breathing is much better today. Objective Vital Signs Date Time Temp Pulse Resp B/P (MAP) Pulse Ox O2 Delivery O2 Flow Rate FiO2 09/02/17 11:06 98.2 94 24 140/75 (96) 90 09/02/17 08:05 97.8 76 23 158/87 (110) 93 09/02/17 08:00 81 09/02/17 07:57 98 Nasal Cannula 6.00 09/02/17 04:00 98.3 80 30 151/87 (108) 93 09/02/17 03:00 84 25 135/79 (97) 88 09/02/17 00:00 97.9 82 33 131/68 (89) 95 09/01/17 23:00 88 32 126/66 (86) 94 09/01/17 23:00 79 09/01/17 22:00 80 19 143/84 (103) 90 09/01/17 21:00 94 36 124/71 (88) 92 09/01/17 20:00 97.8 98 18 147/78 (101) 89 09/01/17 17:49 96 4.00 09/01/17 15:13 84 09/01/17 15:00 97.8 82 27 143/86 (105) 89 09/01/17 14:00 09/01/17 13:44 78 18 153/83 (106) 97 Nasal Cannula 3.00 I/O 09/01/17 09/01/17 09/01/17 09/02/17 09/02/17 09/02/17 07:00 15:00 23:00 07:00 15:00 23:00 Intake Total 720 ml 60 ml Output Total 375 ml Balance 345 ml 60 ml Intake Oral 720 ml 60 ml Output Urine Total 375 ml # Voids 5 # Bowel Movements 0 Result Diagram: 09/02/1742909/02/17429 Objective Remarks Lying in bed sleeping, easily awoken Unlabored breathing, no cyanosis, on nasal cannula, mild expiratory breathing A/P Assessment and Plan Acute on chronic hypoxic respiratory failure likely secondary to combination of chronic obstructive pulmonary disease, chronic congestive heart failure - Acute component resolving - Continue O2 supplementation maintain O2 sats greater than 92% - Continue duo nebs every 6 hours and every 2 hours as needed - We'll lower Solu-Medrol dose later today - Influenza testing was negative - Obtain sputum culture - Chest x-ray independently reviewed by Dr. Navarro shows diffuse mild bilateral infiltrates suggestive of pulmonary edema as well as a right-sided pleural effusion Acute on chronic congestive heart failure w/ preserved EF of 60% on last echocardiogram - Continue Lasix 40 mg IV every 12 hours - Continue lisinopril - Lopressor - echocardiogram read pending - Strict input and output (+ positive balance today, continue diuresing at least until near neutral) - Fluid restriction - PT eval for AM Hypertension, hyperlipidemia, coronary artery disease - Continue home medications DVT prevention - Subcutaneous heparin transferring pt to [facility]. Osman Navarro MD Sep 02, 2017 13:28
--- NOTE | 2017-09-02 16:26 | ECHRPT ---
Indication: heart failure CONCLUSIONS The left ventricular systolic function is ltrpfiff-[id number] reduced with an estimated ejection fra ction in the range of 35-40%. Global hypokinesis. Normal left ventricular size. Atlly-xa-qyih mitral valve regurgitation. No aortic valve regurgitation. There is mild tricuspid valve regurgitation. The pulmonary valve is not well visualized. BP: / HR: Rhythm: Technical Quality:Technically difficult study FINDINGS LEFT VENTRICLE The left ventricular systolic function is ptbraemc-tx-bofnyvq reduced with an estimated ejection fra ction in the range of 35-40%. Normal left ventricular size. RIGHT VENTRICLE Normal right ventricular size and systolic function. LEFT ATRIUM The left atrial size is normal. RIGHT ATRIUM The right atrial size is normal. ATRIAL SEPTUM Normal atrial septal thickness without atrial level shunting by limited color doppler interrogation. AORTA The aortic root and proximal ascending aorta are normal in size on limited imaging. MITRAL VALVE Fugro-ks-rsii mitral valve regurgitation. Structurally normal mitral valve. AORTIC VALVE Trileaflet aortic valve. No aortic valve regurgitation. TRICUSPID VALVE There is mild tricuspid valve regurgitation. Structurally normal tricuspid valve. PULMONARY VALVE The pulmonary valve is not well visualized. VESSELS The inferior vena cava is normal in size. PERICARDIUM No pericardial effusion. Isaac Mark MD (Electronically Signed) Final Date:02 September 2017 16:25
[2017-09-02] MEDS: ATORVASTATIN 10 MG TAB PO SCH (20:07)
[2017-09-02] MEDS: guaiFENesin SOLUTION 200 MG/10 ML CUP PO PRN (20:07)
[2017-09-03] VITALS (10 sets, daily range): BP systolic 154–172; BP diastolic 80–93; PULSE 73–91; RESP 22–28; TEMP 77.6–98.6; O2SAT 91–98
[2017-09-03] MEDS: HEPARIN SODIUM - SQ 10,000 UNITS/ML VIAL SQ SCH ×2 (06:00→18:26)
[2017-09-03] MEDS: methylPREDNISolone SOD SUCC 125 MG/2 ML VIAL IV PUSH SCH ×3 (06:00→20:34)
[2017-09-03] MEDS: RESP: ALBUTEROL 2.5 MG/IPRATROPIUM 0.5 MG NEB (SCH) NEB ×3 (08:00→19:30)
[2017-09-03] MEDS: ASPIRIN 81 MG CHEW TAB CHEW SCH (08:17)
[2017-09-03] MEDS: BUDESONIDE-FORMOTEROL 80/4.5 MCG INHALER INH SCH ×2 (08:17→20:34)
[2017-09-03] MEDS: LISINOPRIL 5 MG TAB PO SCH (08:18)
[2017-09-03] MEDS: METOPROLOL TARTRATE 25 MG TAB PO SCH (08:18)
[2017-09-03] MEDS: SODIUM CHLORIDE 0.9% FLUSH 10 ML FLUSH IV FLUSH SCH ×2 (08:18→20:37)
[2017-09-03] MEDS: FUROSEMIDE 40 MG/4 ML VIAL IVP SCH (08:18)
[2017-09-03] MEDS ORDERED: PRED10PA2 PO (11:37)
--- NOTE | 2017-09-03 11:40 | HHI.DCPOC ---
Discharge Care Plan Diagnosis: (1) Acute and chronic respiratory failure with hypoxia Goals to Promote Your Health * To prevent worsening of your condition and complications * To maintain your health at the optimal level Directions to Meet Your Goals Take your medications as prescribed Follow your dietary instruction Follow activity as directed Keep your appointments as scheduled Take your immunizations and boosters as scheduled If your symptoms worsen call your PCP, if no PCP go to Urgent Care Center or Emergency Room Smoking is Dangerous to Your Health. Avoid second hand smoke Call the 24-hour hour crisis hotline for domestic abuse at Osman Navarro MD Sep 03, 2017 11:40
--- NOTE | 2017-09-03 11:51 | HHI.DS ---
Discharge Summary Admission Date Sep 01, 2017 at 12:35 Discharge Date: Sep 06, 2017 Admitting Diagnosis CHF, COPD EXACERBATION (1) Acute and chronic respiratory failure with hypoxia ICD Code: J96.21 - Acute and chronic respiratory failure with hypoxia Diagnosis: Principal (2) Acute on chronic congestive heart failure ICD Code: I50.9 - Heart failure, unspecified Diagnosis: Principal (3) Elevated brain natriuretic peptide (BNP) level ICD Code: R79.89 - Other specified abnormal findings of blood chemistry Diagnosis: Principal Status: Acute (4) Chronic obstructive pulmonary disease ICD Code: J44.9 - Chronic obstructive pulmonary disease, unspecified Diagnosis: Principal (5) Chest pain ICD Code: R07.9 - Chest pain, unspecified Diagnosis: Principal Procedures none Brief History - From Admission Written by Ramon Zabala, acting as scribe for Dr. Navarro on 09/01/17 at 15 :39. 72-year-old male with known history of hypertension, hyperlipidemia, coronary artery disease, chronic respiratory failure, chronic obstructive pulmonary disease, chronic tobacco use, who on initial presentation does not know why he came to the hospital. Information was taken from medical records, nursing staff and ER physician. However after discussing further with the patient he states that he did have significant lower extremity swelling with scrotal swelling. After further discussion he also indicates that he had some chest discomfort today which he describes as 3/10 on a pain scale without any nausea, vomiting, diaphoresis. He did have some dizziness with shortness of breath area patient does have history of coronary artery disease, myocardial infarction and he was worried that he was having a heart attack so he came to emergency department for evaluation. Upon presentation patient was found to have significant hypoxia with O2 saturations 81%. Patient was given Solu-Medrol , Lasix with significant improvement of his respiratory status. Patient was on nonrebreather at 10 L and after treatment he is now oxygenating better than he usually does at home. He is on 3 L nasal cannula at home and is currently at 3 L in the ER. Patient had further workup done in emergency department found to have elevated BNP, significant lower extremity and scrotal edema. Because of these reasons is recommended by ER physician that the patient be admitted for further evaluation and management. CBC/BMP: 09/02/17 0430 09/02/17 0430 Significant Findings Laboratory Tests Test 09/01/17 11:38 09/01/17 12:50 09/01/17 17:30 09/01/17 23:13 Red Blood Count 4.38 MIL/MM3 (4.50-5.90) Neutrophils (%) (Auto) 76.3 % (16.0-70.0) Monocytes (%) (Auto) 8.3 % (0.0-8.0) Lymphocytes # (Auto) 0.7 TH/MM3 (1.0-4.8) Prothrombin Time 12.3 SEC (9.8-11.6) Total Protein 5.9 GM/DL (6.4-8.2) Albumin 1.5 GM/DL (3.4-5.0) Calcium Level 8.3 MG/DL (8.5-10.1) Aspartate Amino Transf (AST/SGOT) 44 U/L (15-37) Potassium Level 5.2 MEQ/L (3.5-5.1) Carbon Dioxide Level 37.3 MEQ/L (21.0-32.0) Anion Gap 2 MEQ/L (5-15) B-Type Natriuretic Peptide 912 PG/ML (0-100) Urine Protein 300 OR GREATER mg/dL Urine Occult Blood MOD (NEG) Urine RBC 10-14 /hpf (0-3) Urine Hyaline Casts 6-9 /lpf (RARE) Blood Gas HCO3 41 mmol/L (22-26) Blood Gas Base Excess 15.4 mmol/L (-2-2) Blood Gas Oxygen Saturation 89 % (90-100) Arterial Blood Partial Pressure CO2 65 mmHg (38-42) Test 09/02/17 01:12 09/02/17 04:30 Red Blood Count 3.99 MIL/MM3 (4.50-5.90) Hemoglobin 12.6 GM/DL (13.0-17.0) Hematocrit 38.2 % (39.0-51.0) Neutrophils (%) (Auto) 91.6 % (16.0-70.0) Lymphocytes (%) (Auto) 7.3 % (9.0-44.0) Lymphocytes # (Auto) 0.3 TH/MM3 (1.0-4.8) Random Glucose 133 MG/DL (74-106) Calcium Level 8.0 MG/DL (8.5-10.1) Carbon Dioxide Level 41.9 MEQ/L (21.0-32.0) Anion Gap 1 MEQ/L (5-15) PE at Discharge Lying up in bed, with nasal cannula, no acute distress Mild expiratory wheezing, unlabored breathing while resting Hospital Course Patient was admitted, started on IV steroids for COPD exacerbation. His symptoms did improve however he was noted to be quite frail and too weak to reliably ambulate even a short distance. PT recommended rehabilitation. He was also found to have new onset systolic congestive heart failure with an diminished EF. He was started on appropriate heart failure medications while the patient was transitioned to oral steroids. He did not have any fevers or any deterioration in clinical status. Patient has met maximal benefit from hospitalization and is clinically stable for discharge to a rehabilitation facility. Patient is to complete his prednisone in a tapering fashion, starting at the 50 mg once daily regimen, then the 20 mg regimen, then the 10 mg regimen, then the 5 mg regimen. Pt Condition on Discharge: Stable Discharge Disposition: Discharge to SNF Discharge Time: > 30 minutes Discharge Instructions DIET: Follow Instructions for: Heart Healthy Diet Activities you can perform: Weight Bearing as Alexx Follow up Referrals: PCP Follow-up - 1 Week Pulmonology - 10 Days SNF/[facility]/ with [facility] New Medications: Levofloxacin (Levaquin) 750 Mg Tablet 750 MG PO DAILY for Infection, #12 TAB 0 Refills Metoprolol Succinate ER 24 HR (Toprol XL) 25 Mg Tab 25 MG PO DAILY for heart failure, #30 TAB 0 Refills Nifedipine ER 24 HR (Nifedipine ER 24 HR) 30 Mg Tab 30 MG PO DAILY for blood pressure, #30 TAB 0 Refills Potassium Chloride Microencaps (Klor-Con M20) 20 Meq Tab 20 MEQ PO DAILY for Electrolyte Replacement, #30 TAB 0 Refills Prednisone (Prednisone) 5 Mg Tab 5 MG PO DAILY for bronchitis, #5 TAB 0 Refills Prednisone (Prednisone) 10 Mg Tab 10 MG PO DAILY for bronchitis, #5 TAB 0 Refills Prednisone (Prednisone) 20 Mg Tab 20 MG PO DAILY for bronchitis, #5 TAB 0 Refills Prednisone (Prednisone) 20 Mg Tab 40 MG PO DAILY for bronchitis, #5 TAB 0 Refills Take 40 mg (2 tablets) daily for 5 days Aspirin (Tgt Aspirin) 81 Mg Chw 81 MG CHEW DAILY for heart health, #30 EA Furosemide (Furosemide) 40 Mg Tab 40 MG PO DAILY for heart failure , #30 TAB Lisinopril (Lisinopril) 10 Mg Tab 10 MG PO DAILY for heart failure, #30 TAB Spironolactone (Aldactone) 25 Mg Tab 12.5 MG PO DAILY for heart failure, #30 TAB Continued Medications: Albuterol Neb (Albuterol Neb) 0.63 Mg/3 Ml Neb 0.63 MG NEB HS, #25 NEBULE 0 Refills Atorvastatin (Atorvastatin) 10 Mg Tab 10 MG PO HS for Cholesterol Management, #30 TAB 0 Refills Budesonide-Formoterol Inh (Symbicort Inh) 80-4.5 Mcg/Act Aero 2 PUFF INH Q12HR for Asthma Management, #1 INHALER 0 Refills Ipratropium-Albuterol Inh (Combivent Respimat Inh) 20-100 Detention/Act Aero 1 PUFF INH QID PRN for SHORTNESS OF BREATH, #1 INHALER 0 Refills Osman Navarro MD Sep 03, 2017 11:51
[2017-09-03] MEDS: POTASSIUM CHLORIDE 10 MEQ CONTROLLED RELEASE TAB PO SCH ×4 (13:16→23:43)
--- NOTE | 2017-09-03 15:41 | HHI.PR ---
Subjective Remarks Nursing denies any deterioration since last night. Patient himself says he feels like he can go home. However physical therapy note has been reviewed and recommends PT at rehabilitation. Patient states that if he is discharged today , he is not sure if he can sheepskin pickler his prednisone in time to take his first dose tomorrow. Objective Vital Signs Date Time Temp Pulse Resp B/P (MAP) Pulse Ox O2 Delivery O2 Flow Rate FiO2 09/03/17 11:16 97.7 09/03/17 08:02 96 Nasal Cannula 4.00 09/03/17 08:00 86 09/03/17 07:49 77.6 09/03/17 07:00 94 Nasal Cannula 4.00 09/03/17 04:00 97.6 73 24 154/80 (104) 98 09/03/17 00:00 98.6 78 22 155/81 (105) 96 09/02/17 20:00 81 09/02/17 20:00 97.9 86 30 145/75 (98) 93 09/02/17 19:26 94 Nasal Cannula 4.00 09/02/17 19:00 93 Nasal Cannula 6.00 I/O 09/02/17 09/02/17 09/02/17 09/03/17 09/03/17 09/03/17 07:00 15:00 23:00 07:00 15:00 23:00 Intake Total 60 ml 1300 ml 60 ml 720 ml Output Total 1100 ml Balance 60 ml 200 ml 60 ml 720 ml Intake Oral 60 ml 1300 ml 60 ml 720 ml Output Urine Total 1100 ml # Voids 5 5 2 # Bowel Movements 0 0 0 2 Result Diagram: 09/02/1742909/02/17429 Objective Remarks Lying in bed, awake, alert No navya labored breathing, mild expiratory wheezing, nasal cannula in place, no cyanosis A/P Assessment and Plan Acute on chronic hypoxic respiratory failure likely secondary to combination of chronic obstructive pulmonary disease, chronic congestive heart failure - Acute component resolved - Back down to home 3-4 L - Pleural effusion seen on chest x-ray that is mild Acute on chronic congestive heart failure that is now a new diagnosis w/ systolic dysfunction per echo - will switch to low dose oral lasix w/ KCL - Increasing lisinopril dose to 10 mg - starting toprol xl and aldactone Hypertension, hyperlipidemia, coronary artery disease - Continue home medications DVT prevention - Subcutaneous heparin Pt safe to be transferred to [facility]. Consulting CM for SNF placement. Osman Navarro MD Sep 03, 2017 15:41
[2017-09-03] MEDS: PANTOPRAZOLE SOD 40 MG DELAYED RELEASE TAB PO SCH (15:59)
[2017-09-03] MEDS: SPIRONOLACTONE 25 MG TAB PO SCH (15:59)
[2017-09-03] MEDS ORDERED: LISINOPRIL 5 MG TAB PO ONE (16:00)
[2017-09-03] MEDS ORDERED: METOPROLOL SUCCINATE 25 MG EXTENDED RELEASE TAB PO SCH (16:00)
[2017-09-03] MEDS ORDERED: PILL SPLITTER OTHER PRN (16:00)
[2017-09-03] MEDS: ATORVASTATIN 10 MG TAB PO SCH (20:36)
[2017-09-03] MEDS: METOPROLOL SUCCINATE 25 MG EXTENDED RELEASE TAB PO SCH (20:36)
[2017-09-04] VITALS (17 sets, daily range): BP systolic 155–188; BP diastolic 77–107; PULSE 74–94; RESP 7–36; TEMP 96–98.2; O2SAT 87–97
[2017-09-04] MEDS: POTASSIUM CHLORIDE 10 MEQ CONTROLLED RELEASE TAB PO SCH ×2 (04:00→08:00)
[2017-09-04] MEDS: HEPARIN SODIUM - SQ 10,000 UNITS/ML VIAL SQ SCH (05:19)
[2017-09-04] MEDS: methylPREDNISolone SOD SUCC 125 MG/2 ML VIAL IV PUSH SCH (05:20)
[2017-09-04] MEDS: SODIUM CHLORIDE 0.9% FLUSH 10 ML FLUSH IV FLUSH SCH ×2 (05:20→21:37)
[2017-09-04] MEDS: RESP: ALBUTEROL 2.5 MG/IPRATROPIUM 0.5 MG NEB (SCH) NEB ×3 (07:38→19:50)
[2017-09-04] MEDS: BUDESONIDE-FORMOTEROL 80/4.5 MCG INHALER INH SCH ×2 (08:51→23:28)
[2017-09-04] MEDS: ASPIRIN 81 MG CHEW TAB CHEW SCH (08:51)
[2017-09-04] MEDS: PANTOPRAZOLE SOD 40 MG DELAYED RELEASE TAB PO SCH (08:51)
[2017-09-04] MEDS: LISINOPRIL 10 MG TAB PO SCH (08:51)
[2017-09-04] MEDS: SPIRONOLACTONE 25 MG TAB PO SCH (08:52)
[2017-09-04 10:37] LABS: POTASSIUM 4.3 MEQ/L (3.5-5.1)
[2017-09-04 10:41] LABS: BICARBONATE 41.5 MEQ/L (21.0-32.0)
--- NOTE | 2017-09-04 11:11 | HHI.PR ---
Subjective Remarks Nursing denies any deterioration since last night except that the patient does desaturate further when he sleeps requiring up to 5 L. Patient again says he requires more between 3-4 L at home but says this is just a guess. Says that his dyspnea is at its baseline. When we discussing rehabilitation today he actually doubts the need for it despite yesterday's therapy conversation that he actually very receptive to it based upon my recommendation. Objective Vital Signs Date Time Temp Pulse Resp B/P (MAP) Pulse Ox O2 Delivery O2 Flow Rate FiO2 09/04/17 07:53 97.5 79 20 179/93 (121) 96 09/04/17 07:30 94 Nasal Cannula 5.00 09/04/17 04:00 97.7 83 22 157/83 (107) 94 09/04/17 00:44 90 Nasal Cannula 6.00 09/03/17 23:42 97.8 88 25 156/80 (105) 91 09/03/17 20:00 98.0 89 28 172/93 (119) 93 09/03/17 20:00 91 09/03/17 20:00 94 Nasal Cannula 5.00 09/03/17 19:30 92 Nasal Cannula 5.00 09/03/17 16:00 98.0 09/03/17 11:16 97.7 I/O 09/03/17 09/03/17 09/03/17 09/04/17 09/04/17 09/04/17 07:00 15:00 23:00 07:00 15:00 23:00 Intake Total 60 ml 720 ml 480 ml 220 ml Output Total 400 ml 1000 ml 425 ml Balance 60 ml 320 ml -520 ml -205 ml Intake Oral 60 ml 720 ml 480 ml 220 ml Output Urine Total 400 ml 1000 ml 425 ml # Voids 5 2 # Bowel Movements 0 2 1 0 Result Diagram: 09/02/17 0430 09/04/17 1011 Objective Remarks Lying in bed, awake, alert No navya labored breathing, clear lungs today, no cyanosis noted A/P Assessment and Plan Acute on chronic congestive heart failure that is now a new diagnosis w/ systolic dysfunction per echo -Lasix with KCl - lisinopril dose to 10 mg - Continue Lopressor and Aldactone Chronic respiratory failure - Continue O2 supplementation, will benefit from BiPAP when sleeping Hypertension, hyperlipidemia, coronary artery disease - Continue home medications DVT prevention - Lovenox Pt safe to be transferred to [facility]. Consulting CM for SNF placement. Awaiting for [facility] insurance to open up on Wednesday. Osman Navarro MD Sep 04, 2017 11:11
[2017-09-04] MEDS: FUROSEMIDE 40 MG TAB PO SCH (14:46)
[2017-09-04] MEDS: ENOXAPARIN SODIUM 30 MG/0.3 ML SYRINGE SQ SCH (16:54)
[2017-09-04] MEDS: ATORVASTATIN 10 MG TAB PO SCH (21:36)
[2017-09-04] MEDS: METOPROLOL SUCCINATE 25 MG EXTENDED RELEASE TAB PO SCH (21:37)
[2017-09-04] MEDS: predniSONE 50 MG TAB PO SCH (23:28)
[2017-09-05] VITALS (8 sets, daily range): BP systolic 154–187; BP diastolic 79–107; PULSE 77–89; RESP 14–26; TEMP 96.3–97.8; O2SAT 90–94
[2017-09-05] MEDS: RESP: ALBUTEROL 2.5 MG/IPRATROPIUM 0.5 MG NEB (PRN) NEB (04:07)
[2017-09-05] MEDS: RESP: ALBUTEROL 2.5 MG/IPRATROPIUM 0.5 MG NEB (SCH) NEB ×3 (08:00→19:42)
[2017-09-05] MEDS: ASPIRIN 81 MG CHEW TAB CHEW SCH (09:42)
[2017-09-05] MEDS: LISINOPRIL 10 MG TAB PO SCH (09:42)
[2017-09-05] MEDS: PANTOPRAZOLE SOD 40 MG DELAYED RELEASE TAB PO SCH (09:43)
[2017-09-05] MEDS: SPIRONOLACTONE 25 MG TAB PO SCH (09:43)
[2017-09-05] MEDS: POTASSIUM CHLORIDE 10 MEQ CONTROLLED RELEASE TAB PO SCH (09:43)
[2017-09-05] MEDS: predniSONE 50 MG TAB PO SCH (09:43)
[2017-09-05] MEDS: SODIUM CHLORIDE 0.9% FLUSH 10 ML FLUSH IV FLUSH SCH ×2 (09:44→21:36)
[2017-09-05] MEDS: FUROSEMIDE 40 MG TAB PO SCH (09:44)
[2017-09-05] MEDS: BUDESONIDE-FORMOTEROL 80/4.5 MCG INHALER INH SCH ×2 (09:44→21:35)
--- NOTE | 2017-09-05 15:46 | HHI.PR ---
Subjective Remarks Nursing denies any deterioration since last night. Patient says his breathing is as usual. Has no further complaints. Is wondering when he can go to rehabilitation. Objective Vital Signs Date Time Temp Pulse Resp B/P (MAP) Pulse Ox O2 Delivery O2 Flow Rate FiO2 09/05/17 12:00 96.3 77 14 186/107 (133) 92 09/05/17 08:45 Nasal Cannula 3.00 09/05/17 08:00 94 Nasal Cannula 4.00 09/05/17 08:00 96.3 78 16 168/79 (108) 92 09/05/17 04:00 97.8 83 18 162/91 (114) 90 09/05/17 00:00 97.7 78 16 154/88 (110) 93 09/04/17 23:31 Nasal Cannula 3.00 09/04/17 20:00 98.0 86 16 182/99 (126) 90 09/04/17 20:00 81 09/04/17 19:52 97 Nasal Cannula 3.00 09/04/17 18:15 162/98 (119) 09/04/17 17:06 96.0 86 18 177/102 (127) 93 09/04/17 16:00 80 33 161/90 (113) 93 I/O 09/04/17 09/04/17 09/04/17 09/05/17 09/05/17 09/05/17 07:00 15:00 23:00 07:00 15:00 23:00 Intake Total 220 ml 100 ml 462 ml Output Total 425 ml 375 ml 350 ml Balance -205 ml -275 ml 112 ml Intake Oral 220 ml 100 ml 462 ml Output Urine Total 425 ml 375 ml 350 ml # Bowel Movements 0 Result Diagram: 09/02/17 0430 09/04/17 1011 Objective Remarks Lying in bed, awake, alert No navya labored breathing, mild wheezing expiratory phase, no cyanosis, nasal cannula in place A/P Assessment and Plan Acute on chronic systolic congestive heart failure -Lasix with KCl - lisinopril - Continue Lopressor and Aldactone - improving Chronic respiratory failure - Continue O2 supplementation, will benefit from BiPAP when sleeping Hypertension, hyperlipidemia, coronary artery disease - Continue home medications DVT prevention - Lovenox SNF placement. Awaiting for [employer] insurance to open up on Wednesday. Osman Navarro MD Sep 05, 2017 15:46
[2017-09-05] MEDS: ENOXAPARIN SODIUM 30 MG/0.3 ML SYRINGE SQ SCH (17:19)
[2017-09-05] MEDS: METOPROLOL SUCCINATE 25 MG EXTENDED RELEASE TAB PO SCH (21:35)
[2017-09-05] MEDS: ATORVASTATIN 10 MG TAB PO SCH (21:35)
[2017-09-06] VITALS (10 sets, daily range): BP systolic 135–193; BP diastolic 77–99; PULSE 78–95; RESP 18–26; TEMP 96.2–98; O2SAT 91–99
[2017-09-06] MEDS: RESP: ALBUTEROL 2.5 MG/IPRATROPIUM 0.5 MG NEB (PRN) NEB (07:48)
[2017-09-06] MEDS: BUDESONIDE-FORMOTEROL 80/4.5 MCG INHALER INH SCH ×2 (11:02→21:00)
[2017-09-06] MEDS: FUROSEMIDE 40 MG TAB PO SCH (11:03)
[2017-09-06] MEDS: ASPIRIN 81 MG CHEW TAB CHEW SCH (11:03)
[2017-09-06] MEDS: PANTOPRAZOLE SOD 40 MG DELAYED RELEASE TAB PO SCH (11:03)
[2017-09-06] MEDS: LISINOPRIL 10 MG TAB PO SCH (11:03)
[2017-09-06] MEDS: predniSONE 50 MG TAB PO SCH (11:04)
[2017-09-06] MEDS: SPIRONOLACTONE 25 MG TAB PO SCH (11:04)
[2017-09-06] MEDS: POTASSIUM CHLORIDE 10 MEQ CONTROLLED RELEASE TAB PO SCH (11:04)
[2017-09-06] MEDS: SODIUM CHLORIDE 0.9% FLUSH 10 ML FLUSH IV FLUSH SCH ×2 (11:05→21:39)
[2017-09-06] MEDS: RESP: ALBUTEROL 2.5 MG/IPRATROPIUM 0.5 MG NEB (SCH) NEB ×2 (15:48→20:10)
[2017-09-06] MEDS ORDERED: PRED10 PO (16:03)
[2017-09-06] MEDS ORDERED: PRED5TAB PO (16:03)
[2017-09-06] MEDS ORDERED: PRED20 PO (16:03)
[2017-09-06] MEDS ORDERED: LISI10TA3 PO (16:11)
[2017-09-06] MEDS ORDERED: FURO40TA PO (16:11)
[2017-09-06] MEDS ORDERED: ASPI81 CHEW (16:11)
[2017-09-06] MEDS ORDERED: TOPR25TA PO (16:11)
[2017-09-06] MEDS ORDERED: NIFE30TA61 PO (16:12)
[2017-09-06] MEDS ORDERED: SPIR25 PO (16:12)
[2017-09-06] MEDS ORDERED: KLOR20TA3 PO (16:13)
[2017-09-06] MEDS ORDERED: NIFEdipine 10 MG CAP PO ONE (16:15)
[2017-09-06] MEDS ORDERED: ENALAPRILAT 1.25 MG/ML VIAL IV PUSH ONE (16:15)
[2017-09-06] MEDS ORDERED: LEVOFLOXACIN 750 MG TAB PO ONE (16:15)
[2017-09-06] MEDS ORDERED: LEVA750T9 PO (16:16)
[2017-09-06] MEDS: ENOXAPARIN SODIUM 30 MG/0.3 ML SYRINGE SQ SCH (16:33)
[2017-09-06] MEDS: METOPROLOL SUCCINATE 25 MG EXTENDED RELEASE TAB PO SCH (21:38)
[2017-09-06] MEDS: ATORVASTATIN 10 MG TAB PO SCH (21:39)
[2017-09-06] MEDS: NIFEdipine 30 MG SUSTAINED RELEASE TAB PO SCH (21:42)
[2017-09-07] VITALS: BP 160/87; PULSE 81; RESP 20; TEMP 97; O2SAT 98
[2017-09-07 04:00] VITALS: BP 162/90; PULSE 78; RESP 20; TEMP 98.3; O2SAT 98
[2017-09-07] MEDS: RESP: ALBUTEROL 2.5 MG/IPRATROPIUM 0.5 MG NEB (SCH) NEB ×2 (07:46→14:00)
[2017-09-07 07:47] VITALS: O2SAT 94
[2017-09-07 08:00] VITALS: BP 167/96; PULSE 79; RESP 24; TEMP 97; O2SAT 93
[2017-09-07] MEDS: SPIRONOLACTONE 25 MG TAB PO SCH (09:39)
[2017-09-07] MEDS: predniSONE 50 MG TAB PO SCH (09:39)
[2017-09-07] MEDS: ASPIRIN 81 MG CHEW TAB CHEW SCH (09:39)
[2017-09-07] MEDS: PANTOPRAZOLE SOD 40 MG DELAYED RELEASE TAB PO SCH (09:40)
[2017-09-07] MEDS: FUROSEMIDE 40 MG TAB PO SCH (09:40)
[2017-09-07] MEDS: POTASSIUM CHLORIDE 10 MEQ CONTROLLED RELEASE TAB PO SCH (09:40)
[2017-09-07] MEDS: SODIUM CHLORIDE 0.9% FLUSH 10 ML FLUSH IV FLUSH SCH (09:40)
[2017-09-07] MEDS: LISINOPRIL 10 MG TAB PO SCH (09:40)
[2017-09-07] MEDS: NIFEdipine 30 MG SUSTAINED RELEASE TAB PO SCH (09:40)
--- NOTE | 2017-09-07 13:10 | HHI.PR ---
Subjective Remarks Follow up COPD exacerbation. Patient seen and examined, sitting up in bed in nad , on supplemental O2 4 LNC, this is baseline for patient at home. Denies any recent chest pain, headache, ab pain, n/v/d or dysuria. Does complain of chronic cough, no change in clinical condition. Agreeable to plan for rehab, awaiting transfer. Eating well. Participating in therapy. Afebrile. VSS. Objective Vitals Vital Signs Date Time Temp Pulse Resp B/P (MAP) Pulse Ox O2 Delivery O2 Flow Rate FiO2 09/07/17 08:00 97.0 79 24 167/96 (119) 93 09/07/17 07:47 94 Nasal Cannula 4.00 09/07/17 04:00 98.3 78 20 162/90 (114) 98 09/07/17 00:00 97.0 81 20 160/87 (111) 98 09/06/17 23:00 95 09/06/17 20:10 95 Nasal Cannula 4.00 09/06/17 20:00 96.2 84 18 135/79 (97) 96 09/06/17 20:00 96 Nasal Cannula 4.00 09/06/17 17:30 87 20 136/87 (103) 93 09/06/17 16:00 98.0 81 20 193/92 (125) 96 I/O 09/06/17 09/06/17 09/06/17 09/07/17 09/07/17 09/07/17 07:00 15:00 23:00 07:00 15:00 23:00 Intake Total 240 ml 720 ml 500 ml Output Total 200 ml 1150 ml Balance 40 ml -430 ml 500 ml Intake Oral 240 ml 720 ml 500 ml Output Urine Total 200 ml 1150 ml # Voids 2 # Bowel Movements 0 0 Result Diagram: 09/04/17 1011 Imaging Last Impressions Chest X-Ray 09/01/17 1102 Signed Impressions: Service Date/Time: Friday, September 01, 2017 11:20 - CONCLUSION: 1. Small right pleural effusion with associated compressive atelectasis and/or consolidation. 2. Stable background emphysema with bulla at the lung apices and nonspecific pleural-parenchymal opacity at the right lung apex. Papo Rouse MD Objective Remarks GENERAL: Well-developed, well-nourished, in no acute distress. alert and orientated HEENT: Head is normocephalic without any lesions or masses noted. Facial features are symmetric. Eyes: . Extraocular muscles are intact. Conjunctivae were clear. Oropharyngeal: Pharynx without any erythema edema. Tongue is midline without deviation. Buccal mucosa is moist without any masses or lesions NECK: Minimal JVD noted CARDIAC: Regular rhythm, irregular rate. S1/S2 are heard. No murmurs gallops or rubs. LUNGS: Decreased breath sounds in the bases with profound expiratory wheezing. No Rhonchi or rales. No use of accessory muscles on inspiration or expiration. ABDOMEN: Soft, nontender. Nondistended. Bowel sounds heard in all 4 quadrants. No organomegaly or masses. Negative rebound, negative guarding, significant scrotal edema EXTREMITIES: 3+ pitting edema noted bilateral lower extremities, pulses are equal bilaterally. No cyanosis or clubbing MSK: Normal muscle bulk and tone in extremities. 5 out of 5 gross strength in proximal upper and lower extremities bilaterally NEUROLOGY: No facial droop, no slurred speech, no tremors. Psychiatry: Slightly anxious mood, appropriate affect Procedures none A/P Problem List: (1) Acute and chronic respiratory failure with hypoxia ICD Code: J96.21 - Acute and chronic respiratory failure with hypoxia (2) Acute on chronic congestive heart failure ICD Code: I50.9 - Heart failure, unspecified (3) Elevated brain natriuretic peptide (BNP) level ICD Code: R79.89 - Other specified abnormal findings of blood chemistry Status: Acute (4) Chronic obstructive pulmonary disease ICD Code: J44.9 - Chronic obstructive pulmonary disease, unspecified (5) Chest pain ICD Code: R07.9 - Chest pain, unspecified Assessment and Plan Acute on chronic systolic congestive heart failure - Continue Lasix with KCl, lisinopril, Lopressor and Aldactone Chronic respiratory failure - Continue O2 supplementation, will benefit from BiPAP when sleeping Hypertension, hyperlipidemia, coronary artery disease - Continue home medications DVT prevention - Lovenox Discharge Planning Discharge to SNF today. Problem Qualifiers (1) Acute on chronic congestive heart failure: Qualified Codes: I50.9 - Heart failure, unspecified Damaris Farrell Sep 07, 2017 13:10
[2017-09-07 13:30] VITALS: BP 158/98; PULSE 90; RESP 24; TEMP 96; O2SAT 96
[2017-09-07] MEDS: BUDESONIDE-FORMOTEROL 80/4.5 MCG INHALER INH SCH (14:18)
== END 2017-09-07 16:22 | DRG 291 ==
LOC: PHED 10:59 → PHEDA 12:35 → PHICU 14:01 → PH3A 09-04 16:37
PROVIDERS: ADMIT Family Medicine; ATTEND Family Medicine
DX: I11.0 Hypertensive heart disease with heart failure (principal); J96.21 Acute and chronic respiratory failure with hypoxia; Z99.81 Dependence on supplemental oxygen; J44.1 Chronic obstructive pulmonary disease with (acute) exacerbation; J98.11 Atelectasis; I48.91 Unspecified atrial fibrillation; E78.5 Hyperlipidemia, unspecified; F17.210 Nicotine dependence, cigarettes, uncomplicated; K21.9 Gastro-esophageal reflux disease without esophagitis; H91.90 Unspecified hearing loss, unspecified ear; I25.10 Atherosclerotic heart disease of native coronary artery without angina pectoris; F32.9 Major depressive disorder, single episode, unspecified; F41.9 Anxiety disorder, unspecified; M19.90 Unspecified osteoarthritis, unspecified site; I50.23 Acute on chronic systolic (congestive) heart failure; N50.89 Other specified disorders of the male genital organs; R53.1 Weakness; I25.2 Old myocardial infarction; Z95.5 Presence of coronary angioplasty implant and graft; Z95.1 Presence of aortocoronary bypass graft; Z23 Encounter for immunization
CPT/HCPCS: 36600; 71010; 80048; 80053; 81001; 82550; 82805; 83735; 83880; 84484; 85025; 85610; 85730; 86403; 87040; 87070; 87147; 87186; 87205; 87804; 90471; 90686; 93005; 93306; 94640; 94664; 96374; 96375; G0008; J1644; J1650; J1940; J2920; J2930; J7512; Q2038

== ENCOUNTER 2018-01-08 20:18 | Inpatient (IN) | payer OTHER, MEDICARE ==
[~2018-01-08] VITALS: Ht 172.7 cm; Wt 72.7 kg
[2018-01-08] VITALS (7 sets, daily range): BP systolic 101–145; BP diastolic 61–83; PULSE 104–114; RESP 22–28; TEMP 98.9; O2SAT 85–95
[~2018-01-08 20:18] MED LIST changes: -ASPI1TAB69 PO; +ASPI81 CHEW; +FURO40TA PO; +KLOR20TA3 PO; +LEVA750T9 PO; +LISI10TA3 PO; -LISI2.5T3 PO; +NIFE30TA61 PO; +PRED10 PO; +PRED20 PO; +PRED5TAB PO; +SPIR25 PO; +TOPR25TA PO
[2018-01-08] MEDS ORDERED: RESP: ALBUTEROL 2.5 MG/IPRATROPIUM 0.5 MG NEB (SCH) ONE (20:23)
[2018-01-08] MEDS ORDERED: SODIUM CHLORIDE 0.9% FLUSH 10 ML FLUSH IVF PRN (20:30)
[2018-01-08] MEDS ORDERED: methylPREDNISolone SOD SUCC 125 MG/2 ML VIAL IV PUSH ONE (20:30)
[2018-01-08] MEDS: RESP: ALBUTEROL 2.5 MG/IPRATROPIUM 0.5 MG NEB (SCH) INH ×4 (20:34→23:47)
[2018-01-08 20:44] LABS: AUTOMATED NEUTROPHIL # 27.7 TH/MM3 (1.8-7.7); BASOPHIL # 0.9 TH/MM3 (0-0.2); BASOPHIL % 3.1 % (0.0-2.0); HEMATOCRIT 44.4 % (39.0-51.0); LYMPH % 1.8 % (9.0-44.0); LYMPHOCYTE # 0.5 TH/MM3 (1.0-4.8); MEAN CELL VOLUME 95.8 FL (80.0-100.0); MEAN CORPUSCULAR HEMOGLOBIN 30.3 PG (27.0-34.0); MEAN CORPUSCULAR HGB CONC 31.6 % (32.0-36.0); MEAN PLATELET VOLUME 9.4 FL (7.0-11.0); MONO % 1.4 % (0.0-8.0); MONOCYTE # 0.4 TH/MM3 (0-0.9); NEUT % 93.7 % (16.0-70.0); PLATELET COUNT 373 TH/MM3 (150-450); RED BLOOD COUNT 4.63 MIL/MM3 (4.50-5.90); RED CELL DISTRIBUTION WIDTH 15.1 % (11.6-17.2); WHITE BLOOD COUNT 29.5 TH/MM3 (4.0-11.0)
[2018-01-08 20:52] LABS: CHLORIDE 92 MEQ/L (98-107); SODIUM (NA) 136 MEQ/L (136-145)
[2018-01-08 20:55] LABS: BICARBONATE 40.9 MEQ/L (21.0-32.0); CALCIUM 8.6 MG/DL (8.5-10.1); GLUCOSE,RANDOM 127 MG/DL (74-106)
[2018-01-08 20:56] LABS: BLOOD UREA NITROGEN 41 MG/DL (7-18)
[2018-01-08 20:57] LABS: INTERNATIONAL NORMALIZED RATIO 1.5 RATIO; PROTHROMBIN TIME - PATIENT 15.4 SEC (9.8-11.6)
[2018-01-08 20:58] LABS: ALT (GPT) 20 U/L (12-78); AST (GOT) 63 U/L (15-37)
[2018-01-08 20:59] LABS: GLOMERULAR FILTRATION RATE 54 ML/MIN (>89)
[2018-01-08 21:00] LABS: TOTAL BILIRUBIN ADULT 0.2 MG/DL (0.2-1.0); TOTAL PROTEIN 6.3 GM/DL (6.4-8.2)
[2018-01-08 21:01] LABS: ALKALINE PHOSPHATASE 125 U/L (45-117)
[2018-01-08] MEDS ORDERED: ANTI1CRE3 TOPICAL (21:08)
[2018-01-08] MEDS ORDERED: NITR0.4S SL (21:08)
[2018-01-08] MEDS ORDERED: MULT1TAB PO (21:08)
[2018-01-08] MEDS ORDERED: BISO5TAB5 PO (21:08)
[2018-01-08] MEDS ORDERED: TRAM50TA PO (21:08)
[2018-01-08] MEDS ORDERED: ALBUAER3 INH (21:08)
[2018-01-08] MEDS ORDERED: TAMS0.4C4 PO (21:08)
--- NOTE | 2018-01-08 22:01 | RADRPT ---
EXAM DATE/TIME: 01/08/2018 21:08 [place] COMPARISON: CHEST SINGLE AP, September 01, 2017, 11:20. INDICATIONS : Shortness of breath. MEDICAL HISTORY : Chronic obstructive pulmonary disease. Congestive heart failure. Myocardial infarction. Hypertens ion. SURGICAL HISTORY : CABG. ENCOUNTER: Initial ACUITY: 1 day PAIN SCORE: 0/10 LOCATION: Bilateral chest FINDINGS: A single view of the chest demonstrates extensive pleural and parenchymal scarring of both lungs, sim ilar to August 2017. Small bilateral pleural effusions, right greater than left. Mild cardiomegaly. Previous sternotomy. CONCLUSION: 1. Cardiomegaly with small pleural effusions, right greater than left. Questionable minimal interstit ial edema. Lung parenchymal scarring and fibrotic changes in both lungs, especially at the right lung apex, stable. Armond Elmore MD on January 08, 2018 at 21:57 Board Certified Radiologist. This report was verified electronically.
--- NOTE | 2018-01-08 22:26 | PD ---
HPI Chief Complaint: Respiratory Distress Time Seen by Provider: 20:22 Travel History International Travel<30 days: No Contact w/Intl Traveler<30days: No Traveled to known affect area: No History of Present Illness HPI 72-year-old male complains of shortness of breath. Patient states that symptoms started several days ago. Patient states that he has dry cough. Patient has history of COPD and CHF. Patient is on 4 L nasal cannula at home. Patient denies any fever chills. Patient denies any headache. Patient denies any neck pain. Patient denies chest pain. Patient denies abdominal pain. Patient denies any focal weakness or numbness of the extremity. Patient has history of CAD status post CABG and stent placement in the past. Patient is a smoker. EMS was called. Patient was given albuterol treatment, Solu-Medrol 125 mg IV and nonrebreathing mask and transported to the ED for evaluation. PFSH Past Medical History Hx Anticoagulant Therapy: Yes (PLAVIX) Arthritis: Yes (Right Knee) Asthma: Yes Atrial Fibrillation: Yes Autoimmune Disease: No Blood Disorders: No Anxiety: Yes Depression: Yes Heart Rhythm Problems: Yes Cancer: No Cardiac Catheterization: Yes Cardiovascular Problems: Yes High Cholesterol: Yes Chemotherapy: No Chest Pain: Yes Congestive Heart Failure: Yes COPD: Yes Cerebrovascular Accident: No Coronary Artery Disease: Yes Diabetes: No Diminished Hearing: Yes (Hearing aids) Endocrine: No Gastrointestinal Disorders: Yes (ABDOM HERNIA) GERD: Yes Glaucoma: No Genitourinary: No Headaches: No Hepatitis: No Hiatal Hernia: Yes Heparin Induced Thrombocytopen: No Hypertension: Yes Immune Disorder: No Implanted Vascular Access Dvce: No Kidney Stones: No Musculoskeletal: Yes (LEG AND HIP DUE TO PED VS CAR) Neurologic: No Psychiatric: Yes Reproductive: No Respiratory: Yes Immunizations Current: Yes Migraines: No Myocardial Infarction: Yes Pneumonia: Yes Radiation Therapy: No Renal Failure: No Seizures: No Sickle Cell Disease: No Sleep Apnea: No Thyroid Disease: No Ulcer: No Tetanus Vaccination: > 5 Years Influenza Vaccination: Yes Past Surgical History Abdominal Surgery: No AICD: No Appendectomy: No Arteriovenous Shunt: No Cardiac Surgery: Yes Cholecystectomy: No Coronary Artery Bypass Graft: Yes (X 3; cardiac cath) Coronary Stent: Yes (X2 ) Ear Surgery: No Endocrine Surgery: No Eye Surgery: No Genitourinary Surgery: No Gynecologic Surgery: No Insulin Pump: No Joint Replacement: No Neurologic Surgery: No Oral Surgery: Yes (Dental Extractions) Pacemaker: No Thoracic Surgery: Yes (Biopsies of the lungs) Other Surgery: Yes (Bone grafts from bilat hips ) Social History Alcohol Use: Yes (Occasionally) Tobacco Use: Yes (1 CIG A DAY) Substance Use: No Allergies-Medications (Allergen,Severity, Reaction): Coded Allergies: Sulfa (Sulfonamide Antibiotics) (Unverified Allergy, Severe, HIVES AND RASH, 09/01/17) Reported Meds & Prescriptions Reported Meds & Active Scripts Active Klor-Con M20 (Potassium Chloride Microencaps) 20 Meq Tab 20 Meq PO DAILY Nifedipine ER 24 HR (Nifedipine) 30 Mg Tab 30 Mg PO DAILY Aldactone (Spironolactone) 25 Mg Tab 12.5 Mg PO DAILY Tgt Aspirin (Aspirin) 81 Mg Chw 81 Mg CHEW DAILY Furosemide 40 Mg Tab 40 Mg PO DAILY Lisinopril 10 Mg Tab 10 Mg PO DAILY Reported Proair Hfa 8.5 GM Inh (Albuterol Sulfate) 90 Mcg/Act Aer 2 Puff INH Q4-6H PRN 108 mcg/actuation Tramadol (Tramadol HCl) 50 Mg Tab 50 Mg PO Q6H PRN Nitrostat SL (Nitroglycerin) 0.4 Mg Subl 0.4 Mg SL DIRECTED PRN 1 tablet under the tongue as needed for chest pain. Repeat every 5 minutes for a total of 3 DOSES or call 911 if NO relief. Antifungal Topical (Tolnaftate) 1 % Cream 1 Applic TOPICAL DAILY Centrum Silver Adult 50+ (Multiple Vitamins W/ Minerals) 0.4 Mg-300 Mcg-250 Mcg Tab 1 Tab PO DAILY Tamsulosin (Tamsulosin HCl) 0.4 Mg Cap 0.4 Mg PO HS Bisoprolol (Bisoprolol Fumarate) 5 Mg Tab 5 Mg PO DAILY Albuterol Neb (Albuterol Sulfate) 0.63 Mg/3 Ml Neb 0.63 Mg NEB HS Symbicort Inh (Budesonide/Formoterol Fumarate) 80-4.5 Mcg/Act Aero 2 Puff INH Q12HR Combivent Respimat Inh (Ipratropium-Albuterol Inh) 20-100 Fpc/Act Aero 1 Puff INH QID PRN Atorvastatin (Atorvastatin Calcium) 10 Mg Tab 10 Mg PO HS Review of Systems General / Constitutional: No: Fever Eyes: No: Visual changes HENT: No: Headaches Cardiovascular: No: Chest Pain or Discomfort Respiratory: Positive: Cough, Shortness of Breath, Wheezing Gastrointestinal: No: Abdominal Pain Genitourinary: No: Dysuria Musculoskeletal: No: Pain Skin: No Rash Neurologic: No: Weakness Psychiatric: No: Depression Endocrine: No: Polydipsia Hematologic/Lymphatic: No: Easy Bruising Physical Exam Narrative GENERAL: Well-nourished, well-developed patient. SKIN: Focused skin assessment warm/dry. HEAD: Normocephalic. EYES: No scleral icterus. No injection or drainage. NECK: Supple, trachea midline. No JVD or lymphadenopathy. CARDIOVASCULAR: Regular rate and rhythm without murmurs, gallops, or rubs. RESPIRATORY: patient has diminished breath sounds bilaterally. Patient has moderate expiratory wheezes. Few rhonchi at the bases. GASTROINTESTINAL: Abdomen soft, non-tender, nondistended. MUSCULOSKELETAL: No cyanosis. Patient has +1 - +2 pitting edema lower extremity. BACK: Nontender without obvious deformity. No CVA tenderness. Neurologic exam: Patient with mild lethargy however answer questions appropriately. No obvious focal neurological deficit. Data Data Last Documented VS Vital Signs Date Time Temp Pulse Resp B/P (MAP) Pulse Ox O2 Delivery O2 Flow Rate FiO2 01/08/18 21:25 92 Nasal Cannula 4.00 01/08/18 21:10 40 01/08/18 20:25 114 28 01/08/18 20:20 98.9 145/83 (103) Orders Orders Complete Blood Count With Diff (01/08/18 20:22) Comprehensive Metabolic Panel (01/08/18 20:22) B-Type Natriuretic Peptide (01/08/18 20:22) Act Partial Throm Time (Ptt) (01/08/18 20:22) Prothrombin Time / Inr (Pt) (01/08/18 20:22) Arterial Blood Gas (Abg) (01/08/18 20:22) Urinalysis - C+S If Indicated (01/08/18 20:22) Influenzae A/B Antigen (01/08/18 20:22) Blood Culture (01/08/18 20:22) Iv Access Insert/Monitor (01/08/18 20:22) Electrocardiogram (01/08/18 20:22) Ecg Monitoring (01/08/18 20:22) Oximetry (01/08/18 20:22) Oxygen Administration (01/08/18 20:22) Chest, Single Ap (01/08/18 20:22) Sodium Chloride 0.9% Flush (Ns Flush) (01/08/18 20:30) Methylprednisolone So Succ Inj (Solumedr (01/08/18 20:30) Albuterol-Ipratropium Neb (Duoneb Neb) (01/08/18 20:30) Lactic Acid (01/08/18 20:24) Albuterol-Ipratropium Neb (Duoneb Neb) (01/08/18 20:23) Labs Laboratory Tests Test 01/08/18 20:30 01/08/18 20:35 01/08/18 20:42 Lactic Acid Level 2.5 mmol/L White Blood Count 29.5 TH/MM3 Red Blood Count 4.63 MIL/MM3 Hemoglobin 14.0 GM/DL Hematocrit 44.4 % Mean Corpuscular Volume 95.8 FL Mean Corpuscular Hemoglobin 30.3 PG Mean Corpuscular Hemoglobin Concent 31.6 % Red Cell Distribution Width 15.1 % Platelet Count 373 TH/MM3 Mean Platelet Volume 9.4 FL Neutrophils (%) (Auto) 93.7 % Lymphocytes (%) (Auto) 1.8 % Monocytes (%) (Auto) 1.4 % Eosinophils (%) (Auto) 0.0 % Basophils (%) (Auto) 3.1 % Neutrophils # (Auto) 27.7 TH/MM3 Lymphocytes # (Auto) 0.5 TH/MM3 Monocytes # (Auto) 0.4 TH/MM3 Eosinophils # (Auto) 0.0 TH/MM3 Basophils # (Auto) 0.9 TH/MM3 CBC Comment DIFF FINAL Differential Comment Prothrombin Time 15.4 SEC Prothromb Time International Ratio 1.5 RATIO Activated Partial Thromboplast Time 29.5 SEC Blood Urea Nitrogen 41 MG/DL Creatinine 1.30 MG/DL Random Glucose 127 MG/DL Total Protein 6.3 GM/DL Albumin 1.0 GM/DL Calcium Level 8.6 MG/DL Alkaline Phosphatase 125 U/L Aspartate Amino Transf (AST/SGOT) 63 U/L Alanine Aminotransferase (ALT/SGPT) 20 U/L Total Bilirubin 0.2 MG/DL Sodium Level 136 MEQ/L Potassium Level 5.2 MEQ/L Chloride Level 92 MEQ/L Carbon Dioxide Level 40.9 MEQ/L Anion Gap 3 MEQ/L Estimat Glomerular Filtration Rate 54 ML/MIN B-Type Natriuretic Peptide 2060 PG/ML Blood Gas Puncture Site LT RADIAL Blood Gas Patient Temperature 98.6 Blood Gas HCO3 40 mmol/L Blood Gas Base Excess 13.6 mmol/L Blood Gas Oxygen Saturation 89 % Arterial Blood pH 7.34 Arterial Blood Partial Pressure CO2 76 mmHG Arterial Blood Partial Pressure O2 67 mmHG Arterial Blood Oxygen Content 17.5 Vol % Arterial Blood Carboxyhemoglobin 1.6 % Arterial Blood Methemoglobin 1.0 % Blood Gas Hemoglobin 14.0 G/DL Oxygen Delivery Device NASAL CANNULA Blood Gas Liter Flow 4 L/M MDM Medical Decision Making Medical Screen Exam Complete: Yes Emergency Medical Condition: Yes Interpretation(s) 22:09 PM. Chest x-ray showed cardiomegaly with small pleural effusion right greater than left. Questionable minimal interstitial edema. Chronic lung disease. CBC WBC 29.5. 93 neutrophil. Potassium 5.2. Chloride 92. Bicarb 40.9. BUN 41. Creatinine 1.30. GFR 54. BNP 2060. INR 1.5. Influenza AB antigen negative. Lactic acid 2.5. ABG on 4 L nasal cannula, pH 7.34. PCO2 76. PO2 67. Differential Diagnosis Differential diagnosis including acute exacerbation of COPD, acute exacerbation of CHF, bronchitis, pneumonia, PE, pneumothorax. Narrative Course 72-year-old male with coughing wheezing shortness of breath. History of COPD and CHF. Patient was given albuterol treatment 1 and Solu-Medrol 125 mg IV by EMS. Patient was given albuterol with Atrovent unit dose treatment 3 in the ED. patient was put on BiPAP. Patient is unable to tolerate BiPAP. Patient requesting back to nasal cannula O2. O2 4 L nasal cannula. Lasix 40 mg IV. Cefepime 1 g IV. Zithromax 500 mg IV. Diagnosis Primary Impression: COPD with acute exacerbation Additional Impression: Acute exacerbation of CHF (congestive heart failure) Qualified Codes: I50.9 - Heart failure, unspecified Maco Becerra MD Jan 08, 2018 22:26
[2018-01-08] MEDS ORDERED: CEFEPIME INJ 1,000 MG in SODIUM CHLORIDE 0.9% INJ 100 ML IV ONE (22:30)
[2018-01-08] MEDS ORDERED: FUROSEMIDE 40 MG/4 ML VIAL IV PUSH ONE (22:30)
[2018-01-08] MEDS ORDERED: AZITHROMYCIN INJ 500 MG in SODIUM CHLOR 0.9% 250 ML INJ 250 ML IV ONE (22:30)
[2018-01-08] MEDS ORDERED: SODIUM CHLORIDE 0.9% FLUSH 10 ML FLUSH IV FLUSH PRN (22:45)
[2018-01-08] MEDS ORDERED: RESP: ALBUTEROL 2.5 MG/3 ML NEB (PRN) INH (22:45)
[2018-01-08] MEDS ORDERED: methylPREDNISolone SOD SUCC 125 MG/2 ML VIAL IV PUSH SCH (23:00)
[2018-01-09] VITALS (17 sets, daily range): BP systolic 100–134; BP diastolic 61–81; PULSE 92–108; RESP 19–38; TEMP 97.6–99; O2SAT 91–100
[2018-01-09 00:37] LABS: BILIRUBIN, URINE NEG (NEG); BLOOD, URINE MOD (NEG); GLUCOSE,URINE NEG (NEG); KETONE, URINE NEG (NEG); NITRITE,URINE NEG (NEG); URINE COLOR YELLOW (YELLW/STRAW); URINE LEUKOCYTE ESTERASE NEG (NEG)
[2018-01-09 00:49] LABS: WBC, URINE 0-2 /hpf (0-5)
[2018-01-09 00:50] LABS: BACTERIA, URINE RARE /hpf; SPERM, URINE MOD
[2018-01-09] MEDS: CHLORHEXIDINE GLUCONATE 2 % 1 PACK (2 CLOTHS)(taper/protocol) TOPICAL SCH (01:26)
[2018-01-09] MEDS ORDERED: CHLORHEXIDINE GLUCONATE 2 % 1 PACK (2 CLOTHS)(extra cloths) TOPICAL PRN (01:30)
[2018-01-09] MEDS: methylPREDNISolone SOD SUCC 125 MG/2 ML VIAL IV PUSH SCH ×4 (02:09→21:49)
[2018-01-09] MEDS: RESP: ALBUTEROL 2.5 MG/IPRATROPIUM 0.5 MG NEB (SCH) INH ×6 (03:07→23:16)
[2018-01-09 05:27] LABS: AUTOMATED NEUTROPHIL # 27.4 TH/MM3 (1.8-7.7); BASOPHIL # 0.5 TH/MM3 (0-0.2); BASOPHIL % 1.7 % (0.0-2.0); HEMATOCRIT 42.6 % (39.0-51.0); HEMOGLOBIN 13.9 GM/DL (13.0-17.0); LYMPH % 1.8 % (9.0-44.0); LYMPHOCYTE # 0.5 TH/MM3 (1.0-4.8); MEAN CELL VOLUME 95.4 FL (80.0-100.0); MEAN CORPUSCULAR HEMOGLOBIN 31.1 PG (27.0-34.0); MEAN CORPUSCULAR HGB CONC 32.6 % (32.0-36.0); MEAN PLATELET VOLUME 9.3 FL (7.0-11.0); MONO % 1.3 % (0.0-8.0); MONOCYTE # 0.4 TH/MM3 (0-0.9); NEUT % 95.2 % (16.0-70.0); PLATELET COUNT 337 TH/MM3 (150-450); RED BLOOD COUNT 4.46 MIL/MM3 (4.50-5.90); WHITE BLOOD COUNT 28.8 TH/MM3 (4.0-11.0)
[2018-01-09 05:41] LABS: CALCIUM 8.5 MG/DL (8.5-10.1)
[2018-01-09 05:42] LABS: BICARBONATE 42.2 MEQ/L (21.0-32.0)
[2018-01-09 05:45] LABS: CREATININE 1.1 MG/DL (0.60-1.30)
[2018-01-09] MEDS: cefTRIAXone INJ 2,000 MG in SODIUM CHLORIDE 0.9% INJ 100 ML IV SCH (08:48)
[2018-01-09] MEDS: SODIUM CHLORIDE 0.9% FLUSH 10 ML FLUSH IV FLUSH SCH ×2 (08:49→21:50)
[2018-01-09] MEDS: FUROSEMIDE 40 MG/4 ML VIAL IV PUSH SCH (08:49)
--- NOTE | 2018-01-09 08:59 | HHI.HP ---
[facility] Admission Diagnosis Acute exacerbation COPD. Acute exacerbation CHF. Hypoxemia. Diagnoses: Chief Complaint: Shortness of breath Travel History International Travel<30 Days: No Contact w/Intl Traveler <30 Da: No Traveled to Known Affected Are: No History of Present Illness This is a pleasant 72 y/o male who came to ER with Shortness of breath, Patient states that symptoms started several days ago. has dry cough, has COPD and CHF, Patient states that he has dry cough. Patient is on 4 L nasal cannula at home. Denies any fever chills. denies any headache, chest pain, weakness. has CAD with Status post CABG and PCI with stent placement, has tobacco dependence, received Bronchodilators and Solu-Medrol 125 mg IV and nonrebreathing mask. Seen in intensive care unit stable continue present care Review of Systems Constitutional: DENIES: Fever, Chills, Change in appetite Endocrine: DENIES: Heat/cold intolerance Eyes: DENIES: Blurred vision, Eye pain Respiratory: COMPLAINS OF: Cough, Wheezing, Shortness of breath Except as stated in HPI: all other systems reviewed are Neg Past Family Social History Past Medical History OA of Right knee COPD Atrial Fibrillation Anxiety disorder Depression Hyperlipidemia CHF CAD status post PCI with stent placement, CABG Abdominal hernia GERD Hypertension BPH Past Surgical History CABG x 3 PCI with stent placement x 2 Lung Biopsies Bone grafts from bilateral Hips Reported Medications Reported Meds & Active Scripts Active Klor-Con M20 (Potassium Chloride Microencaps) 20 Meq Tab 20 Meq PO DAILY Nifedipine ER 24 HR (Nifedipine) 30 Mg Tab 30 Mg PO DAILY Aldactone (Spironolactone) 25 Mg Tab 12.5 Mg PO DAILY Tgt Aspirin (Aspirin) 81 Mg Chw 81 Mg CHEW DAILY Furosemide 40 Mg Tab 40 Mg PO DAILY Lisinopril 10 Mg Tab 10 Mg PO DAILY Reported Proair Hfa 8.5 GM Inh (Albuterol Sulfate) 90 Mcg/Act Aer 2 Puff INH Q4-6H PRN 108 mcg/actuation Tramadol (Tramadol HCl) 50 Mg Tab 50 Mg PO Q6H PRN Nitrostat SL (Nitroglycerin) 0.4 Mg Subl 0.4 Mg SL DIRECTED PRN 1 tablet under the tongue as needed for chest pain. Repeat every 5 minutes for a total of 3 DOSES or call 911 if NO relief. Antifungal Topical (Tolnaftate) 1 % Cream 1 Applic TOPICAL DAILY Centrum Silver Adult 50+ (Multiple Vitamins W/ Minerals) 0.4 Mg-300 Mcg-250 Mcg Tab 1 Tab PO DAILY Tamsulosin (Tamsulosin HCl) 0.4 Mg Cap 0.4 Mg PO HS Bisoprolol (Bisoprolol Fumarate) 5 Mg Tab 5 Mg PO DAILY Albuterol Neb (Albuterol Sulfate) 0.63 Mg/3 Ml Neb 0.63 Mg NEB HS Symbicort Inh (Budesonide/Formoterol Fumarate) 80-4.5 Mcg/Act Aero 2 Puff INH Q12HR Combivent Respimat Inh (Ipratropium-Albuterol Inh) 20-100 Long Term/Act Aero 1 Puff INH QID PRN Atorvastatin (Atorvastatin Calcium) 10 Mg Tab 10 Mg PO HS Allergies: Coded Allergies: Sulfa (Sulfonamide Antibiotics) (Unverified Allergy, Severe, HIVES AND RASH, 09/01/17) Active Ordered Medications Current Medications Medications (Trade) Dose Ordered Sig/Eliana Route Start Time Stop Time Status Last Admin (NS Flush) 2 ml BID IV FLUSH 01/09/18 09:00 01/09/18 08:49 (NS Flush) 2 ml UNSCH PRN IV FLUSH 01/08/18 22:45 (Duoneb Neb) 1 ampule Q4HR NEB INH 01/09/18 00:00 01/09/18 07:23 (Albuterol Neb) 2.5 mg Q2HR NEB PRN INH 01/08/18 22:45 (Lasix Inj) 40 mg DAILY IV PUSH 01/09/18 09:00 01/09/18 08:49 Azithromycin 500 mg/Sodium Chloride 250 ml @ 250 mls/hr Q24H IV 01/09/18 09:00 01/09/18 09:47 Ceftriaxone Sodium 2000 mg/ Sodium Chloride 100 ml @ 200 mls/hr Q24H IV 01/09/18 08:00 01/09/18 08:48 Miscellaneous Information Patient in critical care unit? Ass... [id number] .XX 01/09/18 01:30 01/09/18 01:30 (Chlorhexidine 2% Cloth) 3 pack DAILY@04 TOPICAL 01/09/18 04:00 01/13/18 04:01 01/09/18 01:26 (Chlorhexidine 2% Cloth) 3 pack UNSCH PRN TOPICAL 01/09/18 01:30 01/14/18 01:18 (SoluMEDROL INJ) 60 mg Q6H IV PUSH 01/09/18 02:00 01/09/18 08:49 (Aspirin Chew) 81 mg DAILY CHEW 01/10/18 09:00 UNV (Lipitor) 10 mg HS PO 01/09/18 21:00 UNV (Symbicort 80-4.5 Mcg Inh) 2 puff Q12HR INH 01/09/18 21:00 UNV (Prinivil) 10 mg DAILY PO 01/10/18 09:00 UNV (Procardia Xl) 30 mg DAILY PO 01/10/18 09:00 UNV (Aldactone) 12.5 mg DAILY PO 01/10/18 09:00 UNV (Flomax) 0.4 mg HS PO 01/09/18 21:00 UNV Non-Formulary Medication 5 mg DAILY PO 01/10/18 09:00 UNV (Bactroban Nasal 2% Oint) 1 applic BID EACH NARE 01/09/18 11:30 UNV Family History asked and the patient states I don't know. Social History Alcohol abuse occasional Tobacco dependence 1 pack daily Physical Exam Vital Signs Vital Signs Date Time Temp Pulse Resp B/P (MAP) Pulse Ox O2 Delivery O2 Flow Rate FiO2 01/09/18 07:24 100 Nasal Cannula 4.00 01/09/18 06:00 102 37 104/69 (81) 100 01/09/18 06:00 102 01/09/18 05:00 102 19 109/73 (85) 100 01/09/18 04:01 97.8 01/09/18 04:00 100 01/09/18 04:00 100 23 113/74 (87) 100 01/09/18 03:00 100 35 111/69 (83) 99 01/09/18 02:00 102 34 100/72 (81) 100 01/09/18 02:00 102 01/09/18 01:00 106 33 100/77 (85) 91 01/09/18 01:00 104 01/09/18 00:29 97.6 108 38 101/61 (74) 100 01/08/18 23:54 01/08/18 23:53 104 24 101/61 (74) 94 Nasal Cannula 4.00 01/08/18 22:05 105 22 123/77 (92) 95 Nasal Cannula 4.00 01/08/18 21:25 92 Nasal Cannula 4.00 01/08/18 21:10 92 40 01/08/18 20:36 91 Nasal Cannula 4.00 01/08/18 20:25 114 28 85 Nasal Cannula 2.00 01/08/18 20:25 95 Nasal Cannula 4.00 01/08/18 20:20 98.9 114 28 145/83 (103) 85 01/08/18 20:20 95 Nasal Cannula 4.00 Physical Exam GENERAL: Well-nourished, well-developed patient. no acute distress. SKIN: Focused skin assessment warm/dry. HEAD: Normocephalic. EYES: No scleral icterus. No injection or drainage. NECK: Supple, trachea midline. No JVD or lymphadenopathy. CARDIOVASCULAR: Regular rate and rhythm without murmurs, gallops, or rubs. RESPIRATORY: patient has diminished breath sounds bilaterally. Patient has moderate expiratory wheezes. Few rhonchi at the bases. GASTROINTESTINAL: Abdomen soft, non-tender, nondistended. MUSCULOSKELETAL: No cyanosis. Patient has +1 - +2 pitting edema lower extremity. BACK: Nontender without obvious deformity. No CVA tenderness. Neurologic exam: Patient with mild lethargy however answer questions appropriately. No obvious focal neurological deficit. Laboratory Laboratory Tests Test 01/08/18 20:30 01/08/18 20:35 01/08/18 20:42 01/09/18 00:18 Lactic Acid Level 2.5 White Blood Count 29.5 Red Blood Count 4.63 Hemoglobin 14.0 Hematocrit 44.4 Mean Corpuscular Volume 95.8 Mean Corpuscular Hemoglobin 30.3 Mean Corpuscular Hemoglobin Concent 31.6 Red Cell Distribution Width 15.1 Platelet Count 373 Mean Platelet Volume 9.4 Neutrophils (%) (Auto) 93.7 Lymphocytes (%) (Auto) 1.8 Monocytes (%) (Auto) 1.4 Eosinophils (%) (Auto) 0.0 Basophils (%) (Auto) 3.1 Neutrophils # (Auto) 27.7 Lymphocytes # (Auto) 0.5 Monocytes # (Auto) 0.4 Eosinophils # (Auto) 0.0 Basophils # (Auto) 0.9 CBC Comment DIFF FINAL Differential Comment Prothrombin Time 15.4 Prothromb Time International Ratio 1.5 Activated Partial Thromboplast Time 29.5 Blood Urea Nitrogen 41 Creatinine 1.30 Random Glucose 127 Total Protein 6.3 Albumin 1.0 Calcium Level 8.6 Alkaline Phosphatase 125 Aspartate Amino Transf (AST/SGOT) 63 Alanine Aminotransferase (ALT/SGPT) 20 Total Bilirubin 0.2 Sodium Level 136 Potassium Level 5.2 Chloride Level 92 Carbon Dioxide Level 40.9 Anion Gap 3 Estimat Glomerular Filtration Rate 54 B-Type Natriuretic Peptide 0 Blood Gas Puncture Site LT RADIAL Blood Gas Patient Temperature 98.6 Blood Gas HCO3 40 Blood Gas Base Excess 13.6 Blood Gas Oxygen Saturation 89 Arterial Blood pH 7.34 Arterial Blood Partial Pressure CO2 76 Arterial Blood Partial Pressure O2 67 Arterial Blood Oxygen Content 17.5 Arterial Blood Carboxyhemoglobin 1.6 Arterial Blood Methemoglobin 1.0 Blood Gas Hemoglobin 14.0 Oxygen Delivery Device NASAL CANNULA Blood Gas Liter Flow 4 Urine Color YELLOW Urine Turbidity CLEAR Urine pH 5.0 Urine Specific [place] 1.025 Urine Protein 100 Urine Glucose (UA) NEG Urine Ketones NEG Urine Occult Blood MOD Urine Nitrite NEG Urine Bilirubin NEG Urine Urobilinogen 0.2 Urine Leukocyte Esterase NEG Urine RBC 3-5 Urine WBC 0-2 Urine Squamous Epithelial Cells 6-8 Urine Bacteria RARE Urine Hyaline Casts 6-9 Urine Sperm MOD Microscopic Urinalysis Comment CULT NOT INDICATED Test 01/09/18 00:35 01/09/18 04:50 Nasal Screen MRSA (PCR) MRSA DETECTED White Blood Count 28.8 Red Blood Count 4.46 Hemoglobin 13.9 Hematocrit 42.6 Mean Corpuscular Volume 95.4 Mean Corpuscular Hemoglobin 31.1 Mean Corpuscular Hemoglobin Concent 32.6 Red Cell Distribution Width 15.0 Platelet Count 337 Mean Platelet Volume 9.3 Neutrophils (%) (Auto) 95.2 Lymphocytes (%) (Auto) 1.8 Monocytes (%) (Auto) 1.3 Eosinophils (%) (Auto) 0.0 Basophils (%) (Auto) 1.7 Neutrophils # (Auto) 27.4 Lymphocytes # (Auto) 0.5 Monocytes # (Auto) 0.4 Eosinophils # (Auto) 0.0 Basophils # (Auto) 0.5 CBC Comment DIFF FINAL Differential Comment Blood Urea Nitrogen 45 Creatinine 1.10 Random Glucose 119 Calcium Level 8.5 Sodium Level 137 Potassium Level 4.7 Chloride Level 92 Carbon Dioxide Level 42.2 Anion Gap 3 Estimat Glomerular Filtration Rate 66 Date/Time Source Procedure Growth Status 01/08/18 20:35 Blood Peripheral Aerobic Blood Culture Pending Received 01/08/18 20:35 Blood Peripheral Anaerobic Blood Culture Pending Received 01/08/18 20:35 Nasal Washing Influenza Types A,B Antigen (BO) - Final NEGATIVE FOR FLU A AND B ANTIGEN.... Complete Result Diagram: 01/09/18 04501/09/18 045 Imaging Last Impressions Chest X-Ray 01/08/182021 Signed Impressions: Service Date/Time: Monday, January 08, 2018 21:08 - CONCLUSION: 1. Cardiomegaly with small pleural effusions, right greater than left. Questionable minimal interstitial edema. Lung parenchymal scarring and fibrotic changes in both lungs, especially at the right lung apex, stable. Armond Elmore MD Caprini VTE Risk Assessment Caprini VTE Risk Assessment: Mod/High Risk (score >= 2) Caprini Risk Assessment Model Point Value = 1 Point Value = 2 Point Value = 3 Point Value = 5 Age 41-60 Minor surgery BMI > 25 kg/m2 Swollen legs Varicose veins or History of unexplained or recurrent spontaneous Oral contraceptives or hormone replacement Sepsis (< 1 month) Serious lung disease, including pneumonia (< 1 month) Abnormal pulmonary function Acute myocardial infarction Congestive heart failure (< 1 month) History of inflammatory bowel disease Medical patient at bed rest Age 61-74 Arthroscopic surgery Major open surgery (> 45 min) Laparoscopic surgery (> 45 min) Malignancy Confined to bed (> 72 hours) Immobilizing plaster cast Central venous access Age >= 75 History of VTE Family history of VTE Factor V Leiden Prothrombin [id number] Lupus anticoagulant Anticardiolipin antibodies Elevated serum homocysteine Heparin-induced thrombocytopenia Other congenital or acquired thrombophilia Stroke (< 1 month) Elective arthroplasty Hip, pelvis, or leg fracture Acute spinal cord injury (< 1 month) Prophylaxis Regimen Total Risk Factor Score Risk Level Prophylaxis Regimen 0-1 Low Early ambulation 2 Moderate Order ONE of the following: *Sequential Compression Device (SCD) *Heparin 5000 units SQ BID 3-4 Higher Order ONE of the following medications: *Heparin 5000 units SQ TID *Enoxaparin/Lovenox 40 mg SQ daily (WT < 150 kg, CrCl > 30 mL/min) *Enoxaparin/Lovenox 30 mg SQ daily (WT < 150 kg, CrCl > 10-29 mL/min) *Enoxaparin/Lovenox 30 mg SQ BID (WT < 150 kg, CrCl > 30 mL/min) AND/OR *Sequential Compression Device (SCD) 5 or more Highest Order ONE of the following medications: *Heparin 5000 units SQ TID (Preferred with Epidurals) *Enoxaparin/Lovenox 40 mg SQ daily (WT < 150 kg, CrCl > 30 mL/min) *Enoxaparin/Lovenox 30 mg SQ daily (WT < 150 kg, CrCl > 10-29 mL/min) *Enoxaparin/Lovenox 30 mg SQ BID (WT < 150 kg, CrCl > 30 mL/min) AND *Sequential Compression Device (SCD) Assessment and Plan Assessment and Plan 1. COPD exacerbation Chest x-ray showed cardiomegaly with small pleural effusion right greater than left. Questionable minimal interstitial edema. Chronic lung disease. CBC WBC 29.5. 93 neutrophil. Potassium 5.2. Creatinine 1.30. GFR 54. BNP 2060. INR 1.5. Influenza AB antigen negative. Lactic acid 2.5. ABG on 4 L nasal cannula, pH 7.34. PCO2 76. PO2 67. was on BiPAP on admission now on Nasal Cannula continue Ceftriaxone and Azithromycin, at this time productive cough. oxygen to keep Oxygen saturation over 92%, Bronchodilator, Mucolytic Incentive spirometry. 2. OA of the right knee 3. Anxiety disorder/Depression to continue Home medicines 4. hyperlipidemia continue Home medicines 5. chronic Systolic heart failure Severely reduced systolic function, EF 35-40% , giving Furosemide IV 6. CAD status post PCI with stent placement, CABG 7. GERD on Famotidine 8. Hypertension continue Home medicines 9. BPH continue Home medicines 10. 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 11. Tobacco dependence strongly recommended to stop smoking renewals manager PT consult. DVT prophylaxis Heparin Code Status full code. Discussed Condition With patient and nurse. Physician Certification 2 Midnight Certification Type: Admission for Inpatient Services Order for Inpatient Services The services are ordered in accordance with Medicare regulations or non- Medicare payer requirements, as applicable. In the case of services not specified as inpatient-only, they are appropriately provided as inpatient services in accordance with the 2-midnight benchmark. Estimated LOS (days): 3 days is the estimated time the patient will need to remain in the hospital, assuming treatment plan goals are met and no additional complications. Post-Hospital Plan: Not yet determined Tip Conner MD Jan 09, 2018 08:59
[2018-01-09] MEDS: AZITHROMYCIN INJ 500 MG in SODIUM CHLOR 0.9% 250 ML INJ 250 ML IV SCH (09:47)
[2018-01-09] MEDS ORDERED: PILL SPLITTER OTHER PRN (11:30)
--- NOTE | 2018-01-09 13:27 | EKG ---
Date Performed: 01/08/2018 Time Performed: 20:32:35 PTAGE: 72 years EKG: Sinus tachycardia First degree AV block Right bundle branch block Indeterminate axis, but i t may be quite rightward Nonspecific T-wave change Occasional PVCs Compared to previous tracing, PVCs are new, otherwise no significant change. ABNORMAL ECG PREVIOUS TRACING : 09/01/2017 22.38 DOCTOR: Doug Koch Interpretating Date/Time 01/09/2018 13:26:08
[2018-01-09] MEDS: HEPARIN SODIUM - SQ 10,000 UNITS/ML VIAL SQ SCH ×2 (13:55→21:50)
[2018-01-09] MEDS: MUPIROCIN 2% OINT 1 APPLIC/GM SYR EACH NARE SCH ×2 (13:55→21:49)
[2018-01-09] MEDS: TAMSULOSIN HCL 0.4 MG CAP PO SCH (21:50)
[2018-01-09] MEDS: ATORVASTATIN 10 MG TAB PO SCH (21:50)
[2018-01-09] MEDS: BUDESONIDE-FORMOTEROL 80/4.5 MCG INHALER INH SCH (21:50)
[2018-01-10] VITALS (14 sets, daily range): BP systolic 100–132; BP diastolic 61–81; PULSE 71–104; RESP 26–43; TEMP 97–97.6; O2SAT 81–97
[2018-01-10] MEDS: RESP: ALBUTEROL 2.5 MG/IPRATROPIUM 0.5 MG NEB (SCH) INH ×6 (03:13→23:29)
[2018-01-10] MEDS: CHLORHEXIDINE GLUCONATE 2 % 1 PACK (2 CLOTHS)(taper/protocol) TOPICAL SCH (04:00)
[2018-01-10] MEDS: methylPREDNISolone SOD SUCC 125 MG/2 ML VIAL IV PUSH SCH ×3 (05:27→18:02)
[2018-01-10] MEDS: BUDESONIDE-FORMOTEROL 80/4.5 MCG INHALER INH SCH ×2 (09:00→22:18)
[2018-01-10] MEDS: BISOPROLOL FUMARATE 5 MG TAB PO SCH (09:00)
[2018-01-10] MEDS: ASPIRIN 81 MG CHEW TAB CHEW SCH (09:00)
[2018-01-10] MEDS: SODIUM CHLORIDE 0.9% FLUSH 10 ML FLUSH IV FLUSH SCH ×2 (09:00→22:19)
[2018-01-10] MEDS: AZITHROMYCIN INJ 500 MG in SODIUM CHLOR 0.9% 250 ML INJ 250 ML IV SCH (09:21)
[2018-01-10] MEDS: FUROSEMIDE 40 MG/4 ML VIAL IV PUSH SCH (09:21)
[2018-01-10] MEDS: MUPIROCIN 2% OINT 1 APPLIC/GM SYR EACH NARE SCH ×2 (09:21→21:00)
[2018-01-10] MEDS: LISINOPRIL 10 MG TAB PO SCH (09:22)
[2018-01-10] MEDS: cefTRIAXone INJ 2,000 MG in SODIUM CHLORIDE 0.9% INJ 100 ML IV SCH (09:22)
[2018-01-10] MEDS: SPIRONOLACTONE 25 MG TAB PO SCH (09:22)
[2018-01-10] MEDS: NIFEdipine 30 MG SUSTAINED RELEASE TAB PO SCH (09:22)
[2018-01-10] MEDS: HEPARIN SODIUM - SQ 10,000 UNITS/ML VIAL SQ SCH ×2 (09:22→21:00)
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
--- NOTE | 2018-01-10 13:56 | HHI.PR ---
Subjective Remarks Patient seen and evaluated for respiratory failure due to COPD exacerbation. Patient on 6 L. Care plan discussed with MANAGER OF ADMINISTRATION. Palliative care appreciated Objective Vitals Vital Signs Date Time Temp Pulse Resp B/P (MAP) Pulse Ox O2 Delivery O2 Flow Rate FiO2 01/10/18 12:07 80 43 108/73 (85) 94 01/10/18 12:00 81 01/10/18 11:30 93 Nasal Cannula 6.00 01/10/18 09:00 97.4 104 43 132/73 (92) 94 01/10/18 08:00 94 01/10/18 08:00 100 42 92 01/10/18 07:30 92 Nasal Cannula 6.00 01/10/18 04:00 94 01/10/18 04:00 97.6 94 26 122/78 (93) 91 01/10/18 00:00 97.4 94 34 128/81 (97) 95 01/10/18 00:00 94 01/09/18 20:00 98 01/09/18 20:00 97.8 98 33 116/73 (87) 91 01/09/18 19:27 97 Nasal Cannula 4.00 01/09/18 16:00 92 01/09/18 16:00 99.0 92 31 134/81 (98) 96 I/O 01/09/18 01/09/18 01/09/18 01/10/18 01/10/18 01/10/18 07:00 15:00 23:00 07:00 15:00 23:00 Intake Total 300 ml 350 ml 520 ml 480 ml Output Total 100 ml 650 ml 375 ml Balance 200 ml 350 ml -130 ml 105 ml Intake Oral 50 ml 520 ml 480 ml IV Total 250 ml 350 ml Output Urine Total 100 ml 650 ml 375 ml Bladder Scan Volume Amount 390 ml 390 ml # Bowel Movements 0 0 Result Diagram: 01/09/18 0450 01/09/18 0450 Objective Remarks GENERAL: This is a frail elderly gentleman who is short of breath at rest CARDIOVASCULAR: Regular rate and rhythm without murmurs, gallops, or rubs. RESPIRATORY: C decreased airflow bilaterally without appreciable rhonchi GASTROINTESTINAL: Abdomen soft, non-tender, nondistended. Normal active bowel sounds MUSCULOSKELETAL: Extremities without clubbing, cyanosis, or edema. NEURO: Alert & Oriented x4 to person, place, time, situation. Moves all ext x4 A/P Problem List: (1) COPD exacerbation ICD Code: J44.1 - Chronic obstructive pulmonary disease with (acute) exacerbation Status: Acute Plan: Patient presented with hypoxemic and hypercapnic respiratory failure. This is recurrent. Patient will benefit from end-of-life planning due to recurrent nonadherence to medical treatment planning as well as a progressive course of his COPD. We will continue with steroids, oxygen as needed, bronchodilators and continued medical support. Palliative consult is appreciated. (2) Acute on chronic congestive heart failure ICD Code: I50.9 - Heart failure, unspecified Plan: Last EF shows EF of 30-40% and global hypokinesis with acute on chronic systolic and diastolic heart failure exacerbation at this time. Patient will continue with diuresis, medical management and continue patient education Radha Ramirez MD Jan 10, 2018 13:56
[2018-01-10] MEDS: TAMSULOSIN HCL 0.4 MG CAP PO SCH (21:00)
[2018-01-10] MEDS: ATORVASTATIN 10 MG TAB PO SCH (22:18)
[2018-01-11] VITALS (8 sets, daily range): BP systolic 105–118; BP diastolic 63–70; PULSE 70–78; RESP 17–33; TEMP 97.3–98.1; O2SAT 85–100
[2018-01-11] MEDS: methylPREDNISolone SOD SUCC 125 MG/2 ML VIAL IV PUSH SCH ×4 (01:20→17:15)
[2018-01-11] MEDS: CHLORHEXIDINE GLUCONATE 2 % 1 PACK (2 CLOTHS)(taper/protocol) TOPICAL SCH (01:49)
[2018-01-11] MEDS: RESP: ALBUTEROL 2.5 MG/IPRATROPIUM 0.5 MG NEB (SCH) INH ×4 (03:00→15:32)
[2018-01-11 05:33] LABS: AUTOMATED NEUTROPHIL # 30.7 TH/MM3 (1.8-7.7); BASOPHIL # 0.1 TH/MM3 (0-0.2); BASOPHIL % 0.3 % (0.0-2.0); HEMATOCRIT 33.7 % (39.0-51.0); HEMOGLOBIN 11.3 GM/DL (13.0-17.0); LYMPH % 0.7 % (9.0-44.0); LYMPHOCYTE # 0.2 TH/MM3 (1.0-4.8); MEAN CELL VOLUME 95.5 FL (80.0-100.0); MEAN CORPUSCULAR HGB CONC 33.5 % (32.0-36.0); MEAN PLATELET VOLUME 8.9 FL (7.0-11.0); MONO % 0.5 % (0.0-8.0); MONOCYTE # 0.2 TH/MM3 (0-0.9); NEUT % 98.5 % (16.0-70.0); PLATELET COUNT 251 TH/MM3 (150-450); RED BLOOD COUNT 3.53 MIL/MM3 (4.50-5.90); RED CELL DISTRIBUTION WIDTH 15.4 % (11.6-17.2); WHITE BLOOD COUNT 31.2 TH/MM3 (4.0-11.0)
[2018-01-11 05:53] LABS: BICARBONATE 39.4 MEQ/L (21.0-32.0); CALCIUM 8.1 MG/DL (8.5-10.1)
[2018-01-11 05:56] LABS: CREATININE 0.94 MG/DL (0.60-1.30)
[2018-01-11 07:04] LABS: BANDS 9 % (0-6); NEUTROPHIL # MANUAL DIFF 31.2 TH/MM3 (1.8-7.7); POLYS (SEG NEUTROPHILS) 91 % (16-70)
[2018-01-11 07:07] LABS: TOXIC GRANULATION 2+ (NORMAL)
[2018-01-11] MEDS ORDERED: AZITHROMYCIN 250 MG TAB PO SCH (09:00)
[2018-01-11] MEDS ORDERED: FUROSEMIDE 40 MG TAB PO SCH (09:00)
[2018-01-11] MEDS: MUPIROCIN 2% OINT 1 APPLIC/GM SYR EACH NARE SCH (09:03)
[2018-01-11] MEDS: ASPIRIN 81 MG CHEW TAB CHEW SCH (09:03)
[2018-01-11] MEDS: SPIRONOLACTONE 25 MG TAB PO SCH (09:03)
[2018-01-11] MEDS: HEPARIN SODIUM - SQ 10,000 UNITS/ML VIAL SQ SCH (09:03)
[2018-01-11] MEDS: BISOPROLOL FUMARATE 5 MG TAB PO SCH (09:04)
[2018-01-11] MEDS: SODIUM CHLORIDE 0.9% FLUSH 10 ML FLUSH IV FLUSH SCH (09:04)
[2018-01-11] MEDS: LISINOPRIL 10 MG TAB PO SCH (09:04)
[2018-01-11] MEDS: NIFEdipine 30 MG SUSTAINED RELEASE TAB PO SCH (09:04)
[2018-01-11] MEDS: BUDESONIDE-FORMOTEROL 80/4.5 MCG INHALER INH SCH (09:04)
--- NOTE | 2018-01-11 10:10 | HHI.PR ---
Subjective Remarks Patient seen and evaluated today in follow-up for COPD and respiratory failure which is unchanged. Discharge planned to hospice care center should family Objective Vitals Vital Signs Date Time Temp Pulse Resp B/P (MAP) Pulse Ox O2 Delivery O2 Flow Rate FiO2 01/11/18 07:51 94 Nasal Cannula 6.00 01/11/18 04:00 97.7 78 26 106/63 (77) 93 01/11/18 04:00 78 01/11/18 00:00 72 01/11/18 00:00 97.3 72 31 109/65 (80) 96 01/10/18 20:00 76 01/10/18 20:00 97.0 76 31 94 01/10/18 19:42 95 Nasal Cannula 6.00 01/10/18 18:00 74 28 100/61 (74) 95 01/10/18 16:00 71 01/10/18 15:54 97 Nasal Cannula 6.00 01/10/18 12:07 80 43 108/73 (85) 88 01/10/18 12:07 80 43 108/73 (85) 94 01/10/18 12:00 86 39 88 01/10/18 12:00 81 01/10/18 11:30 93 Nasal Cannula 6.00 I/O 01/10/18 01/10/18 01/10/18 01/11/18 01/11/18 01/11/18 07:00 15:00 23:00 07:00 15:00 23:00 Intake Total 480 ml 360 ml 240 ml Output Total 375 ml 650 ml 500 ml Balance 105 ml -290 ml -260 ml Intake Oral 480 ml 360 ml 240 ml Output Urine Total 375 ml 650 ml 500 ml Bladder Scan Volume Amount 390 ml # Bowel Movements 0 Result Diagram: 01/11/18 0430 01/11/18 0430 Imaging Last Impressions Chest X-Ray 01/08/182021 Signed Impressions: Service Date/Time: Monday, January 08, 2018 21:08 - CONCLUSION: 1. Cardiomegaly with small pleural effusions, right greater than left. Questionable minimal interstitial edema. Lung parenchymal scarring and fibrotic changes in both lungs, especially at the right lung apex, stable. Armond Elmore MD Objective Remarks GENERAL: This is a frail elderly gentleman who is short of breath at rest CARDIOVASCULAR: Regular rate and rhythm without murmurs, gallops, or rubs. RESPIRATORY: C decreased airflow bilaterally without appreciable rhonchi GASTROINTESTINAL: Abdomen soft, non-tender, nondistended. Normal active bowel sounds MUSCULOSKELETAL: Extremities without clubbing, cyanosis, or edema. NEURO: Alert & Oriented x4 to person, place, time, situation. Moves all ext x4 A/P Problem List: (1) COPD exacerbation ICD Code: J44.1 - Chronic obstructive pulmonary disease with (acute) exacerbation Status: Acute Plan: Patient presented with hypoxemic and hypercapnic respiratory failure. This is recurrent. Patient will benefit from end-of-life planning due to recurrent nonadherence to medical treatment planning as well as a progressive course of his COPD. We will continue with steroids, oxygen as needed, bronchodilators and continued medical support. Palliative/hospice consult is appreciated. (2) Acute on chronic congestive heart failure ICD Code: I50.9 - Heart failure, unspecified Plan: Last EF shows EF of 30-40% and global hypokinesis with acute on chronic systolic and diastolic heart failure exacerbation at this time. Patient will continue with diuresis, medical management and continue patient education Discharge Planning hopefully to hospice care center Radha Ramirez MD Jan 11, 2018 10:10
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
--- NOTE | 2018-01-11 17:19 | HHI.DCPOC ---
Discharge Care Plan Diagnosis: (1) COPD exacerbation Goals to Promote Your Health * To prevent worsening of your condition and complications * To maintain your health at the optimal level Directions to Meet Your Goals Take your medications as prescribed Follow your dietary instruction Follow activity as directed Keep your appointments as scheduled Take your immunizations and boosters as scheduled If your symptoms worsen call your PCP, if no PCP go to Urgent Care Center or Emergency Room Smoking is Dangerous to Your Health. Avoid second hand smoke Call the 24-hour hour crisis hotline for domestic abuse at Radha Ramirez MD Jan 11, 2018 17:19
--- NOTE | 2018-01-11 17:21 | HHI.DS ---
Discharge Summary Admission Date Jan 09, 2018 at 10:20 Discharge Date: Jan 11, 2018 Admitting Diagnosis Acute exacerbation COPD. Acute exacerbation CHF. Hypoxemia. (1) COPD exacerbation ICD Code: J44.1 - Chronic obstructive pulmonary disease with (acute) exacerbation Status: Acute (2) Acute on chronic congestive heart failure ICD Code: I50.9 - Heart failure, unspecified Procedures none Brief History - From Admission This is a pleasant 72 y/o male who came to ER with Shortness of breath, Patient states that symptoms started several days ago. has dry cough, has COPD and CHF, Patient states that he has dry cough. Patient is on 4 L nasal cannula at home. Denies any fever chills. denies any headache, chest pain, weakness. has CAD with Status post CABG and PCI with stent placement, has tobacco dependence, received Bronchodilators and Solu-Medrol 125 mg IV and nonrebreathing mask. Seen in intensive care unit stable continue present care CBC/BMP: 01/11/18 0430 01/11/18 0430 Significant Findings Laboratory Tests Test 01/08/18 20:30 01/08/18 20:35 01/08/18 20:42 01/09/18 00:18 Lactic Acid Level 2.5 mmol/L (0.4-2.0) White Blood Count 29.5 TH/MM3 (4.0-11.0) Mean Corpuscular Hemoglobin Concent 31.6 % (32.0-36.0) Neutrophils (%) (Auto) 93.7 % (16.0-70.0) Lymphocytes (%) (Auto) 1.8 % (9.0-44.0) Basophils (%) (Auto) 3.1 % (0.0-2.0) Neutrophils # (Auto) 27.7 TH/MM3 (1.8-7.7) Lymphocytes # (Auto) 0.5 TH/MM3 (1.0-4.8) Basophils # (Auto) 0.9 TH/MM3 (0-0.2) Prothrombin Time 15.4 SEC (9.8-11.6) Blood Urea Nitrogen 41 MG/DL (7-18) Random Glucose 127 MG/DL (74-106) Total Protein 6.3 GM/DL (6.4-8.2) Albumin 1.0 GM/DL (3.4-5.0) Alkaline Phosphatase 125 U/L (45-117) Aspartate Amino Transf (AST/SGOT) 63 U/L (15-37) Potassium Level 5.2 MEQ/L (3.5-5.1) Chloride Level 92 MEQ/L (98-107) Carbon Dioxide Level 40.9 MEQ/L (21.0-32.0) Anion Gap 3 MEQ/L (5-15) Estimat Glomerular Filtration Rate 54 ML/MIN (>89) B-Type Natriuretic Peptide 2060 PG/ML (0-100) Blood Gas HCO3 40 mmol/L (22-26) Blood Gas Base Excess 13.6 mmol/L (-2-2) Blood Gas Oxygen Saturation 89 % (90-100) Arterial Blood pH 7.34 (7.380-7.420) Arterial Blood Partial Pressure CO2 76 mmHG (38-42) Urine Protein 100 mg/dL (NEG-TRACE) Urine Occult Blood MOD (NEG) Urine Squamous Epithelial Cells 6-8 /hpf (0-5) Urine Bacteria RARE /hpf (NONE) Urine Hyaline Casts 6-9 /lpf (RARE) Urine Sperm MOD (NONE) Test 01/09/18 00:35 01/09/18 04:50 01/11/18 04:30 White Blood Count 28.8 TH/MM3 (4.0-11.0) 31.2 TH/MM3 (4.0-11.0) Red Blood Count 4.46 MIL/MM3 (4.50-5.90) 3.53 MIL/MM3 (4.50-5.90) Neutrophils (%) (Auto) 95.2 % (16.0-70.0) 98.5 % (16.0-70.0) Lymphocytes (%) (Auto) 1.8 % (9.0-44.0) 0.7 % (9.0-44.0) Neutrophils # (Auto) 27.4 TH/MM3 (1.8-7.7) 30.7 TH/MM3 (1.8-7.7) Lymphocytes # (Auto) 0.5 TH/MM3 (1.0-4.8) 0.2 TH/MM3 (1.0-4.8) Basophils # (Auto) 0.5 TH/MM3 (0-0.2) Blood Urea Nitrogen 45 MG/DL (7-18) 53 MG/DL (7-18) Random Glucose 119 MG/DL (74-106) 114 MG/DL (74-106) Chloride Level 92 MEQ/L (98-107) 88 MEQ/L (98-107) Carbon Dioxide Level 42.2 MEQ/L (21.0-32.0) 39.4 MEQ/L (21.0-32.0) Anion Gap 3 MEQ/L (5-15) Estimat Glomerular Filtration Rate 66 ML/MIN (>89) 79 ML/MIN (>89) Hemoglobin 11.3 GM/DL (13.0-17.0) Hematocrit 33.7 % (39.0-51.0) Neutrophils % (Manual) 91 % (16-70) Band Neutrophils % 9 % (0-6) Neutrophils # (Manual) 31.2 TH/MM3 (1.8-7.7) Toxic Granulation 2+ (NORMAL) Calcium Level 8.1 MG/DL (8.5-10.1) Sodium Level 132 MEQ/L (136-145) PE at Discharge GENERAL: This is a frail elderly gentleman who is short of breath at rest CARDIOVASCULAR: Regular rate and rhythm without murmurs, gallops, or rubs. RESPIRATORY: C decreased airflow bilaterally without appreciable rhonchi GASTROINTESTINAL: Abdomen soft, non-tender, nondistended. Normal active bowel sounds MUSCULOSKELETAL: Extremities without clubbing, cyanosis, or edema. NEURO: Alert & Oriented x4 to person, place, time, situation. Moves all ext x4 Pt update on day of discharge Please see progress note Hospital Course Patient is seen and treated for COPD He has recurrent admissions without improvement in between admissions. He does meet hospice criteria. Multiple consultations were made with the family and with the assistance of palliative care. Patient was transferred to hospice care facility Pt Condition on Discharge: Stable Discharge Disposition: Hospice/Med Facility Discharge Time: <= 30 minutes Discharge Instructions DIET: Follow Instructions for: As Tolerated, No Restrictions Activities you can perform: Regular-No Restrictions Continued Medications: Albuterol 8.5 GM Inh (Proair Hfa 8.5 GM Inh) 90 Mcg/Act Aer 2 PUFF INH Q4-6H PRN for SHORTNESS OF BREATH, #1 INHALER 0 Refills 108 mcg/actuation Albuterol Neb (Albuterol Neb) 0.63 Mg/3 Ml Neb 0.63 MG NEB HS, #25 NEBULE 0 Refills Aspirin (Tgt Aspirin) 81 Mg Chw 81 MG CHEW DAILY for heart health, #30 EA Atorvastatin (Atorvastatin) 10 Mg Tab 10 MG PO HS for Cholesterol Management, #30 TAB 0 Refills Bisoprolol (Bisoprolol) 5 Mg Tab 5 MG PO DAILY for Blood Pressure Management, #30 TAB 0 Refills Budesonide-Formoterol Inh (Symbicort Inh) 80-4.5 Mcg/Act Aero 2 PUFF INH Q12HR for Asthma Management, #1 INHALER 0 Refills Furosemide (Furosemide) 40 Mg Tab 40 MG PO DAILY for heart failure , #30 TAB Ipratropium-Albuterol Inh (Combivent Respimat Inh) 20-100 Assisted/Act Aero 1 PUFF INH QID PRN for SHORTNESS OF BREATH, #1 INHALER 0 Refills Lisinopril (Lisinopril) 10 Mg Tab 10 MG PO DAILY for heart failure, #30 TAB Multiple Vitamins W/ Minerals (Centrum Silver Adult 50+) 0.4 Mg-300 Mcg-250 Mcg Tab 1 TAB PO DAILY Nifedipine ER 24 HR (Nifedipine ER 24 HR) 30 Mg Tab 30 MG PO DAILY for blood pressure, #30 TAB 0 Refills Nitroglycerin SL (Nitrostat SL) 0.4 Mg Subl 0.4 MG SL DIRECTED PRN for CHEST PAIN, #100 TAB.SL 0 Refills 1 tablet under the tongue as needed for chest pain. Repeat every 5 minutes for a total of 3 DOSES or call 911 if NO relief. Potassium Chloride Microencaps (Klor-Con M20) 20 Meq Tab 20 MEQ PO DAILY for Electrolyte Replacement, #30 TAB 0 Refills Spironolactone (Aldactone) 25 Mg Tab 12.5 MG PO DAILY for heart failure, #30 TAB Tamsulosin (Tamsulosin) 0.4 Mg Cap 0.4 MG PO HS for Manage Prostate Problems, #30 CAP 0 Refills Tolnaftate Topical (Antifungal Topical) 1 % Cream 1 APPLIC TOPICAL DAILY, TUBE Tramadol (Tramadol) 50 Mg Tab 50 MG PO Q6H PRN for PAIN, TAB 0 Refills Radha Ramirez MD Jan 11, 2018 17:21
== END 2018-01-11 18:30 | disposition hospice, inpatient (51) | DRG 190 ==
LOC: PHED 20:18 → INTOOBSV 22:49 → PHEDA 22:49 → PHICU 01-09 00:19 → OBSVTOIN 01-09 10:20 → UNDODISIN 01-11 18:30
PROVIDERS: ADMIT Hospitalist; ATTEND Hospitalist
PROC: 0T9B70Z Drainage of Bladder with Drainage Device, Via Natural or Artificial Opening (ICD-10-PCS; principal; 2018-01-09)
DX: J44.1 Chronic obstructive pulmonary disease with (acute) exacerbation (principal); I50.43 Acute on chronic combined systolic (congestive) and diastolic (congestive) heart failure; J96.92 Respiratory failure, unspecified with hypercapnia; R64 Cachexia; J96.11 Chronic respiratory failure with hypoxia; Z99.81 Dependence on supplemental oxygen; I48.0 Paroxysmal atrial fibrillation; F17.210 Nicotine dependence, cigarettes, uncomplicated; M19.90 Unspecified osteoarthritis, unspecified site; E78.00 Pure hypercholesterolemia, unspecified; I25.10 Atherosclerotic heart disease of native coronary artery without angina pectoris; H91.90 Unspecified hearing loss, unspecified ear; K21.9 Gastro-esophageal reflux disease without esophagitis; I11.0 Hypertensive heart disease with heart failure; E78.5 Hyperlipidemia, unspecified; N40.0 Benign prostatic hyperplasia without lower urinary tract symptoms; F10.10 Alcohol abuse, uncomplicated; M17.11 Unilateral primary osteoarthritis, right knee; F32.9 Major depressive disorder, single episode, unspecified; R60.0 Localized edema; R41.0 Disorientation, unspecified; R05 Cough; F40.240 Claustrophobia; Z51.5 Encounter for palliative care; Z66 Do not resuscitate; I25.2 Old myocardial infarction; Z95.1 Presence of aortocoronary bypass graft; Z95.5 Presence of coronary angioplasty implant and graft; Z86.14 Personal history of Methicillin resistant Staphylococcus aureus infection
CPT/HCPCS: 36600; 71045; 80048; 80053; 81001; 82805; 83605; 83880; 85007; 85025; 85027; 85610; 85730; 87040; 87077; 87186; 87205; 87641; 87804; 93005; 94002; 94640; 94664; 94668; 96374; 96375; 96376; G0378; J0456; J0692; J0696; J1644; J1940; J2930; J7050